=== PATIENT | female | born 1970 | race Two or more races ===

== ENCOUNTER 2019-12-15 13:35 | Outpatient (REF) | payer OTHER, SELFPAY ==
[2019-12-16 11:48] LABS: CT PCR NOT DETECTED (Not Detect.); NG PCR NOT DETECTED (Not Detect.)
[2019-12-20 19:37] LABS: HPV mRNA E6/E7 Not Detected (Not Detected)
== END 2019-12-15 13:36 | disposition home or self-care (01) ==
LOC: HO.LAB 13:35
PROVIDERS: PCP Internal Medicine; Referring Provider Internal Medicine; Visit Provider Advanced Practice Midwife
DX: Z01.419 Encounter for gynecological examination (general) (routine) without abnormal findings (principal); N92.6 Irregular menstruation, unspecified; N95.1 Menopausal and female climacteric states; N85.2 Hypertrophy of uterus; Z87.42 Personal history of other diseases of the female genital tract
CPT/HCPCS: 87491; 87591; 87624; 87625; 88142

== ENCOUNTER 2019-12-24 15:37 | Outpatient (REF) | payer OTHER, SELFPAY ==
--- NOTE | 2019-12-24 15:48 | US_ITS ---
EXAMINATION: US PELVIS COMPLETE CLINICAL INFORMATION: Pelvic and perineal pain. Bilateral salpingectomy. COMPARISON: None TECHNIQUE: Transabdominal and transvaginal ultrasound of the pelvis is performed. FINDINGS: The uterus is anteverted and anteflexed measuring 7.0 cm in length, 3.9 cm in AP and 3.6 cm in transverse dimension. Myometrium is slightly heterogeneous but no focal lesion seen. Endometrial thickness is 0.6 cm. Echogenic calcifications are seen in the cervix. Right ovary measures 2.1 x 1.4 x 1.1 cm and volume 1.7 mL and appears unremarkable. The left ovary is unremarkable. There is no free fluid in cul-de-sac. US/US pelvic complete IMPRESSION: 1. Heterogeneous myometrium but no focal lesion seen. 2. Small calcification in the cervix without any cyst. 3. Right ovary is unremarkable. 4. Left ovary is not visualized.
--- NOTE | 2019-12-24 15:48 | US_ITS ---
EXAMINATION: US PELVIS COMPLETE CLINICAL INFORMATION: Pelvic and perineal pain. Bilateral salpingectomy. COMPARISON: None TECHNIQUE: Transabdominal and transvaginal ultrasound of the pelvis is performed. FINDINGS: The uterus is anteverted and anteflexed measuring 7.0 cm in length, 3.9 cm in AP and 3.6 cm in transverse dimension. Myometrium is slightly heterogeneous but no focal lesion seen. Endometrial thickness is 0.6 cm. Echogenic calcifications are seen in the cervix. Right ovary measures 2.1 x 1.4 x 1.1 cm and volume 1.7 mL and appears unremarkable. The left ovary is unremarkable. There is no free fluid in cul-de-sac. US/US transvaginal IMPRESSION: 1. Heterogeneous myometrium but no focal lesion seen. 2. Small calcification in the cervix without any cyst. 3. Right ovary is unremarkable. 4. Left ovary is not visualized.
== END 2019-12-24 15:38 | disposition home or self-care (01) ==
LOC: HO.US 15:37
PROVIDERS: PCP Internal Medicine; Visit Provider Advanced Practice Midwife
DX: R10.2 Pelvic and perineal pain (principal)
CPT/HCPCS: 76830; 76856

== ENCOUNTER → 2020-01-07 11:27 | Outpatient (BNVA) | payer OTHER, SELFPAY | PROVIDERS: PCP Internal Medicine; Visit Provider Advanced Practice Midwife | DX: Z76.89 Persons encountering health services in other specified circumstances (principal) ==

== ENCOUNTER 2020-02-23 15:15 | Outpatient (REF) | payer OTHER, SELFPAY | END 2020-02-23 15:16 | disposition home or self-care (01) | LOC: HO.LAB 15:15 | PROVIDERS: PCP Internal Medicine; Visit Provider Internal Medicine | DX: Z20.828 Contact with and (suspected) exposure to other viral communicable diseases (principal) | CPT/HCPCS: C9803; U0003 ==

== ENCOUNTER → 2020-06-22 08:46 | Outpatient (BNVA) | payer OTHER, SELFPAY | PROVIDERS: PCP Internal Medicine; Visit Provider Obstetrics & Gynecology | DX: Z32.02 Encounter for pregnancy test, result negative (principal); R87.619 Unspecified abnormal cytological findings in specimens from cervix uteri | CPT/HCPCS: 57452 ==

== ENCOUNTER → 2021-03-19 15:00 | Outpatient (BNVA) | payer OTHER, SELFPAY | PROVIDERS: PCP Internal Medicine; Visit Provider Advanced Practice Midwife ==

== ENCOUNTER 2021-03-23 07:48 | Outpatient (REF) | payer OTHER, SELFPAY ==
[2021-03-23 08:03] LABS: MANUAL DIFF FLAG NO
[2021-03-23 08:21] LABS: Basophils Percent Auto 0.6 % (0-2); Eosinophils Absolute Auto 0.2 X10*3/uL (0.0-0.4); Eosinophils Percent Auto 2.1 % (0-4); Hematocrit 38.9 % (37.0-47.0); Hemoglobin 12.2 g/dl (12.0-16.0); Imm Gran Abs Auto 0.01 X10*3/uL (0.00-0.03); Imm Gran Pct Auto 0.1 % (0.0-0.4); Lymphocytes Absolute Auto 2.7 X10*3/uL (1.2-4.9); Lymphocytes Percent Auto 38.5 % (20-40); Mean Corpuscular HGB Conc 31.4 g/dl (31.0-35.0); Mean Corpuscular Hemoglobin 27.6 pg (27.0-33.0); Mean Platelet Volume 10.2 fL (9.4-12.3); Monocytes Absolute Auto 0.6 X10*3/uL (0.1-1.2); Monocytes Percent Auto 8.9 % (2-11); Neutrophils Absolute Auto 3.5 x10*3/uL (2.0-8.3); Neutrophils Percent Auto 49.8 % (45-73); Platelet Count 256 X10*3/uL (160-400); Red Blood Count 4.42 X10*6/uL (4.20-5.50); Red Cell Distribution Width 12.2 % (11.0-16.0); White Blood Count 7.1 X10*3/uL (4.8-10.8)
[2021-03-23 08:52] LABS: Alanine Aminotransferase 9 U/L (0-31); Albumin Level 4.3 g/dL (3.5-5.0); Alkaline Phosphatase 80 U/L (39-117); Anion Gap 10 (12-20); Aspartate Amino Transferase 13 U/L (5-31); Bilirubin Total 1.1 mg/dL (0.0-1.0); Blood Urea Nitrogen 11 mg/dL (9-16); Calcium 9.9 mg/dL (8.4-10.2); Carbon Dioxide 31 mmol/L (22-29); Chloride 104 mmol/L (96-108); Cholesterol 203 mg/dL; Estimated Glomerular Filt Rate > 60; Glucose Fasting 100 mg/dL (60-99); HDL Cholesterol 49 mg/dL; LDL Cholesterol Calculated 135 mg/dl; Potassium 4.5 mmol/L (3.3-5.1); Sodium 140 mmol/L (135-145); Total Protein 7.5 g/dL (6.5-8.0); Triglycerides 96 mg/dL
[2021-03-23 09:14] LABS: Thyroid Stimulating Hormone 5.06 uIU/mL (0.32-4.0)
== END 2021-03-23 07:49 | disposition home or self-care (01) ==
LOC: HO.LAB 07:48
PROVIDERS: PCP Internal Medicine; Visit Provider Internal Medicine
DX: Z00.00 Encounter for general adult medical examination without abnormal findings (principal); Z13.0 Encounter for screening for diseases of the blood and blood-forming organs and certain disorders involving the immune mechanism
CPT/HCPCS: 36415; 80053; 80061; 84443; 85025

== ENCOUNTER 2021-03-30 17:04 | Outpatient (REF) | payer OTHER, SELFPAY ==
[2021-03-30 18:26] LABS: Thyroid Stimulating Hormone 3.95 uIU/mL (0.32-4.0)
== END 2021-03-30 17:05 | disposition home or self-care (01) ==
LOC: HO.LAB 17:04
PROVIDERS: PCP Internal Medicine; Visit Provider Internal Medicine
DX: Z00.00 Encounter for general adult medical examination without abnormal findings (principal); Z13.29 Encounter for screening for other suspected endocrine disorder
CPT/HCPCS: 36415; 84443

== ENCOUNTER 2021-04-06 12:01 | Outpatient (REF) | payer OTHER, SELFPAY ==
[2021-04-06 13:40] LABS: Thyroid Stimulating Hormone 3.41 uIU/mL (0.32-4.0)
== END 2021-04-06 12:02 | disposition home or self-care (01) ==
LOC: HO.LAB 12:01
PROVIDERS: PCP Internal Medicine; Visit Provider Internal Medicine
DX: Z00.00 Encounter for general adult medical examination without abnormal findings (principal)
CPT/HCPCS: 36415; 84443

== ENCOUNTER 2021-06-07 16:24 | Outpatient (REF) | payer OTHER, SELFPAY ==
--- NOTE | ~2021-06-07 | MM_ITS ---
EXAMINATION: MM SCREENING DIGITAL BREAST TOMOSYNTHESIS, BILATERAL CLINICAL INFORMATION: Screening. Asymptomatic. The lifetime risk of breast cancer based on the Tyrer-Cuzick Model is 7%. COMPARISON: Mammography: 10/26/2019, 03/13/2016 TECHNIQUE: Digital breast tomosynthesis is performed in both the craniocaudal and mediolateral oblique views along with computer-aided detection (CAD). Synthesized 2D images are generated from the tomosynthesis. FINDINGS: There are scattered areas of fibroglandular density (ACR BI-RADS breast composition Category b). There are no significant masses, abnormal calcifications, or other abnormalities. Parenchymal pattern is similar to prior studies. There is no developing density or architectural abnormality. The axilla and skin contours are unremarkable. No significant changes. MM/MM tomosynthesis screening BI IMPRESSION: No mammographic evidence of malignancy. ASSESSMENT: BI-RADS 1: Negative RECOMMENDATION: Routine annual mammography screening. This patient's information was entered into a reminder system with a target due date for their next mammogram.
== END 2021-06-07 16:25 | disposition home or self-care (01) ==
LOC: HO.MAMMO 16:24
PROVIDERS: Visit Provider Advanced Practice Midwife
DX: Z12.31 Encounter for screening mammogram for malignant neoplasm of breast (principal)
CPT/HCPCS: 77063; 77067

== ENCOUNTER 2021-10-26 07:27 | Day surgery (SDC) | payer OTHER, SELFPAY ==
[2021-10-22 15:05] VITALS: BMI 29.1
--- NOTE | 2021-10-25 11:48 | P.CONAN_ITS ---
Documented by User: Cori Vidales NP 10/25/21 11:48 HPI - Anesthesia Eval Consult details Narrative: 51yo F for Colonoscopy PMFSH Active Problems Active Problems: All Active Problems (Updated 01/31/21 @ 13:37 by Nasim Gonzales MD) Physical exam (Acute) Abnormal Pap smear of cervix (Acute) Enlarged uterus (Acute) Hx of ovarian cyst (Acute) Perimenopausal symptoms (Acute) Past Medical History Medical History Abnormal Pap smear of cervix History of in vitro fertilization Hx of attention deficit disorder Hx of ectopic Family History Family History Mother Rectal cancer Thyroid disease History of fibromyalgia Father Pancreatic cancer Liver cancer Diabetes mellitus Paternal Grandfather Aneurysm Daughter History of open heart surgery Surgical History Surgical History History of breast lift Hx of tubal ligation Social History Social History (Updated 10/22/21 @ 15:05 by Willow Thompson RN) Housing: House Alcohol intake: never Patient Tobacco Use Status: Former Tobacco user Quit Date: >10 years ago Tobacco use type: Cigarette e-Cigarette/Vaping Use: Never Used Second Hand Smoke Exposure: No Are you DNR?: No Advance Directives: No Advance Directives Information Provided: Yes Nutrition Risks: No Nutritional Risk FDLMP: 18 months ago Current occupational status: employed Sexual orientation: Straight/Heterosexual Gender identity: Female Cognitive needs: No Hearing needs: No Vision needs: No Meds Allergies Allergy/AdvReac Type Severity Reaction Status Date / Time codeine [Codeine] Allergy Mild HIVES Verified 10/26/21 07:54 morphine [MORPHINE] Allergy Unknown RASH, HIVES Verified 10/26/21 07:54 Home Medications Medication Instructions Recorded Confirmed Last Taken Type No Known Home Meds 01/07/20 10/22/21 Unknown History Exam Exam Date and Time: October 25, 2021 1148 Height,Weight and Vital Signs: Height 5 ft 5 in Weight 79.379 kg Assessment and Plan Assessment Anesthesia Assessment: Chart Reviewed Documented by User: Zachery Rai MD 11/04/21 21:19 [facility] Past Medical History Medical History Abnormal Pap smear of cervix History of in vitro fertilization Hx of attention deficit disorder Hx of ectopic Functional capacity: independent ambulation Family History Family History Mother Rectal cancer Thyroid disease History of fibromyalgia Father Pancreatic cancer Liver cancer Diabetes mellitus Paternal Grandfather Aneurysm Daughter History of open heart surgery Family history of problems with anesthesia: No Surgical History Surgical History History of breast lift Hx of tubal ligation History of Problems with Anesthesia: Yes (PONV) Social History Social History (Updated 10/22/21 @ 15:05 by Willow Thompson RN) Housing: House Alcohol intake: never Patient Tobacco Use Status: Former Tobacco user Quit Date: >10 years ago Tobacco use type: Cigarette e-Cigarette/Vaping Use: Never Used Second Hand Smoke Exposure: No Are you DNR?: No Advance Directives: No Advance Directives Information Provided: Yes Nutrition Risks: No Nutritional Risk FDLMP: 18 months ago Current occupational status: employed Sexual orientation: Straight/Heterosexual Gender identity: Female Cognitive needs: No Hearing needs: No Vision needs: No Meds Allergies Allergy/AdvReac Type Severity Reaction Status Date / Time codeine [Codeine] Allergy Mild HIVES Verified 10/26/21 07:54 morphine [MORPHINE] Allergy Unknown RASH, HIVES Verified 10/26/21 07:54 Home Medications Medication Instructions Recorded Confirmed Last Taken Type No Known Home Meds 01/07/20 10/22/21 Unknown History Exam Airway Mallampati Class: III TM Dist: >3cm Neck ROM: Full Loose/Missing/Broken Teeth: Yes (Fillings ) Heart: S1,S2 Lungs: b/l breath sounds Assessment and Plan Assessment Anesthesia Assessment: Anesthesia Plan Discussed Final Anesthetic Review Family History of Problems with Anesthesia: No History of Problems with Anesthesia: Yes (PONV) NPO: Yes ASA Class: II Final Preanesthetic Review: Meds/Allgs Chart Reviewed, Consent Obtained/Reviewed and Anes Risks/Benef Reviewed Patient Risk: Intermediate Procedure Risk: Intermediate Anesthetic Plan Anesthetic Plan: MAC: Disposition: Standard PACU
[2021-10-26] MEDS: Lactated Ringers 1,000 ML 100 ML IVCONT (07:52)
[2021-10-26 07:53] VITALS: BP 127/78; PULSE 71; RESP 18; TEMP 36.4; O2SAT 99
--- NOTE | 2021-10-26 08:55 | MHC.SHP ---
Pre-Procedural Eval Section A Date of Service: 10/26/21 Section B Chief Complaint: screening Details of Present Illness: see H&P no changes Relevant Family History (Specify if Yes): No Relevant Social History: None Present Medications: None Medical History: No relevant PMH Allergies: Allergies Allergy/AdvReac Type Severity Reaction Status Date / Time codeine [Codeine] Allergy Mild HIVES Verified 10/26/21 07:54 morphine [MORPHINE] Allergy Unknown RASH, HIVES Verified 10/26/21 07:54 Review of Systems Sugical H&P ROS: Negative: Constitution, Cardiovascular, Respiratory, Neurological, Psychiatric, Hem-Onc, Allergic/Immunologic, Gastrointestinal, Genitourinary, Musculoskeletal, Integumentary, Endocrine and Eyes/Ears/Nose/Throat Exam Surgical H&P Exam: Normal: HEENT, Normal: Heart, Normal: Lungs, Normal: Extremities, Normal: Abdomen, Normal: Skin and Normal: Neurological Plan Diagnosis/Plan: Unchanged I have reviewed the history and physical and performed a pertinent physical examination on my patient. No changes have occurred unless specified.
--- NOTE | 2021-10-26 09:25 | PM.OP ---
Brief Operative Note Date of Service: 10/26/21 Pre-op diagnosis: screening Post-op diagnosis: same Surgeon: Mandeep Zuniga Anesthesia: MAC Was an Clerical Administrative Assistant used for this Procedure?: No Estimated blood loss (mL): 0 Pathology: other Condition: stable Disposition: PACU
[2021-10-26 09:31] VITALS: BP 90/55; PULSE 67; RESP 15; TEMP 36.6; O2SAT 99
[2021-10-26 09:45] VITALS: BP 101/64; PULSE 82; RESP 16; O2SAT 100
[2021-10-26 10:00] VITALS: BP 116/72; PULSE 62; RESP 18; TEMP 36.6; O2SAT 100
--- NOTE | 2021-10-26 21:29 | OP_ITS ---
SURGEON: Mandeep Zuniga MD INDICATIONS: Colon cancer screening. PREOPERATIVE DIAGNOSIS: POSTOPERATIVE DIAGNOSIS: PROCEDURE PERFORMED: Colonoscopy to the terminal ileum with snare polypectomy. 10/26/21 ESTIMATED BLOOD LOSS: COMPLICATIONS: ANESTHESIA: ASSISTANTS: SPECIMENS: MEDICATIONS: Monitored anesthesia care. DESCRIPTION OF PROCEDURE: A history and physical performed. The risks and benefits of the procedure were explained to the patient. Informed consent was obtained. The patient was placed in the left lateral decubitus position. A digital rectal exam was performed and was found to be normal. The Olympus pediatric video colonoscope was introduced into the rectum and advanced to the cecum without difficulty. The cecum was identified by transillumination, palpation, and identification of ileocecal valve. Examination was performed. The scope was removed. She tolerated the procedure well, returned to recovery area in stable condition. FINDINGS: The terminal ileum was normal. The visualized colonic mucosa was within normal limits without evidence of masses, ulcers, or polyps. In the hepatic flexure, was an 8 to 9 mm polyp, which was removed with a hot snare and recovered via suction. No other polyps were identified. The quality of prep was good. Retroflexed examination showed some small internal hemorrhoids. IMPRESSION: Colon polyp. RECOMMENDATION: Follow up the biopsy results. MD BRITTANY Mccracken/HIPOLITOL / [id number] MTDD
== END 2021-10-26 11:08 | disposition home or self-care (01) ==
PROVIDERS: PCP Internal Medicine; Visit Provider Internal Medicine Gastroenterology
PROC: 0DJD8ZZ Inspection of Lower Intestinal Tract, Via Natural or Artificial Opening Endoscopic (ICD-10-PCS; CPT 45378; principal; 2021-10-26 08:50)
DX: Z12.11 Encounter for screening for malignant neoplasm of colon (principal); D12.3 Benign neoplasm of transverse colon; K64.8 Other hemorrhoids; Z80.0 Family history of malignant neoplasm of digestive organs; Z90.79 Acquired absence of other genital organ(s); Z87.891 Personal history of nicotine dependence; Z88.8 Allergy status to other drugs, medicaments and biological substances
CPT/HCPCS: 45385; 88305

== ENCOUNTER 2022-03-12 08:59 | Outpatient (REF) | payer OTHER, SELFPAY ==
--- NOTE | ~2022-03-12 | MM_ITS ---
EXAMINATION: BONE DENSITOMETRY CLINICAL INDICATION: Other specified disorders of bone density and structure, unspecified site. COMPARISON: None (current study represents initial baseline exam). TECHNIQUE: Using a [employer] DXA System (software version: 13.1) manufactured by [employer], dual-energy x-ray absorptiometry was performed of the lumbar spine and left hip. The images are of good technical quality. Summary results are attached. FINDINGS: AP SPINE L1-L4: BMD 1.109 g/cm2, Z-score -0.6, T-score -0.6, normal. LEFT FEMUR, NECK: BMD 0.946 g/cm2, Z-score -0.1, T-score -0.7, normal. LEFT FEMUR, TOTAL: BMD 0.988 g/cm2, Z-score 0.0, T-score -0.2, normal. IDENTIFIED RISK FACTORS: Menopause. HISTORY OF FRACTURE: None listed. MEDICATIONS: None listed. MM/XR DEXA axial skeleton IMPRESSION: 1. DIAGNOSIS: Normal bone density based on the lowest T-score value of -0.7 in the femoral neck applying World Health Organization criteria. 2. 10-YEAR FRACTURE RISK PREDICTION, FRAX: According to the guidelines, FRAX calculation should only be performed on patients in the osteopenia bone density category.?Therefore, FRAX was not performed on this patient.? 3. Treatment Recommendations: NOF guidelines recommend consideration for treatment in postmenopausal women and men age 50 and older presenting with the following: -A hip or vertebral (clinical or morphometric) fracture. -T-score less than or equal to -2.5 at the femoral neck or spine after appropriate evaluation to exclude secondary causes. -Low bone mass at the hip or spine and a 10-year fracture probability by FRAX of greater than or equal to 3% for hip fracture or greater than or equal to 20% for major osteoporotic fracture based on the [place] adapted WHO algorithm. 4. Other Recommendations: All treatment decisions require clinical judgment and consideration of individual patient factors, including patient preferences, comorbidities, previous drug use, risk factors not captured in the FRAX model (e.g. frailty, falls, vitamin D deficiency, increased bone turnover, interval significant decline in bone density) and possible under or overestimation of fracture risk by FRAX. FUTURE SCAN RECOMMENDATION: People with diagnosed cases of osteoporosis or at high risk for fracture should have regular bone mineral density tests. For patients eligible for Medicare, routine testing is allowed once every 2 years. The testing frequency can be increased to one year for patients who have rapidly progressing disease, those who are receiving or discontinuing medical therapy to restore bone mass, or have additional risk factors.
== END 2022-03-12 09:00 | disposition home or self-care (01) ==
LOC: HO.MAMMO 08:59
PROVIDERS: PCP Internal Medicine; Visit Provider Internal Medicine
DX: Z13.820 Encounter for screening for osteoporosis (principal); M85.80 Other specified disorders of bone density and structure, unspecified site; Z78.0 Asymptomatic menopausal state
CPT/HCPCS: 77080

== ENCOUNTER 2022-03-12 09:21 | Outpatient (REF) | payer OTHER, SELFPAY ==
[2022-03-12 09:32] LABS: MANUAL DIFF FLAG NO
[2022-03-12 09:40] LABS: Basophils Absolute Auto 0.1 X10*3/uL (0.0-0.2); Basophils Percent Auto 0.7 % (0-2); Eosinophils Absolute Auto 0.1 X10*3/uL (0.0-0.4); Eosinophils Percent Auto 1.5 % (0-4); Hematocrit 39.5 % (37.0-47.0); Hemoglobin 12.8 g/dl (12.0-16.0); Imm Gran Abs Auto 0.02 X10*3/uL (0.00-0.03); Imm Gran Pct Auto 0.3 % (0.0-0.4); Lymphocytes Absolute Auto 2.5 X10*3/uL (1.2-4.9); Lymphocytes Percent Auto 33.2 % (20-40); Mean Corpuscular HGB Conc 32.4 g/dl (31.0-35.0); Mean Corpuscular Hemoglobin 28.4 pg (27.0-33.0); Mean Corpuscular Volume 87.8 fL (80.0-98.0); Mean Platelet Volume 10.1 fL (9.4-12.3); Monocytes Absolute Auto 0.6 X10*3/uL (0.1-1.2); Monocytes Percent Auto 7.3 % (2-11); Neutrophils Absolute Auto 4.3 x10*3/uL (2.0-8.3); Platelet Count 284 X10*3/uL (160-400); Red Cell Distribution Width 12.2 % (11.0-16.0); White Blood Count 7.5 X10*3/uL (4.8-10.8)
[2022-03-12 10:50] LABS: Alanine Aminotransferase 10 U/L (0-31); Albumin Level 4.4 g/dL (3.5-5.0); Alkaline Phosphatase 87 U/L (39-117); Anion Gap 11 (12-20); Aspartate Amino Transferase 14 U/L (5-31); Bilirubin Total 1.2 mg/dL (0.0-1.0); Blood Urea Nitrogen 12 mg/dL (9-16); Calcium 9.3 mg/dL (8.4-10.2); Carbon Dioxide 30 mmol/L (22-29); Chloride 104 mmol/L (96-108); Cholesterol 210 mg/dL; Estimated Glomerular Filt Rate > 60; Glucose Fasting 96 mg/dL (60-99); HDL Cholesterol 53 mg/dL; LDL Cholesterol Calculated 140 mg/dl; Potassium 4.4 mmol/L (3.3-5.1); Sodium 141 mmol/L (135-145); Total Protein 7.3 g/dL (6.5-8.0); Triglycerides 89 mg/dL
[2022-03-12 11:08] LABS: Thyroid Stimulating Hormone 3.71 uIU/mL (0.32-4.0); Vitamin D 25-OH Total 18.3 ng/mL (>30)
== END 2022-03-12 09:22 | disposition home or self-care (01) ==
LOC: HO.LAB 09:21
PROVIDERS: PCP Internal Medicine; Visit Provider Internal Medicine
DX: Z13.9 Encounter for screening, unspecified (principal); D64.9 Anemia, unspecified; E03.9 Hypothyroidism, unspecified; N28.9 Disorder of kidney and ureter, unspecified; E78.5 Hyperlipidemia, unspecified
CPT/HCPCS: 36415; 80053; 80061; 82306; 84443; 85025

== ENCOUNTER 2022-03-21 15:18 | Outpatient (REF) | payer OTHER, SELFPAY ==
[2022-03-25 20:23] LABS: HPV mRNA E6/E7 rflx Not Detected (Not Detected)
== END 2022-03-21 15:19 | disposition home or self-care (01) ==
LOC: HO.LNP 15:18
PROVIDERS: PCP Internal Medicine; Visit Provider Advanced Practice Midwife
DX: Z01.419 Encounter for gynecological examination (general) (routine) without abnormal findings (principal); R87.619 Unspecified abnormal cytological findings in specimens from cervix uteri; N95.1 Menopausal and female climacteric states; N89.8 Other specified noninflammatory disorders of vagina; R68.82 Decreased libido
CPT/HCPCS: 88142

== ENCOUNTER 2022-05-03 06:31 | Day surgery (SDC) | payer OTHER, SELFPAY ==
--- NOTE | 2022-05-02 10:07 | HO.ANESPROP2 ---
Documented by User: Cori Vidales NP 05/02/22 10:13 HPI - Anesthesia Eval Consult details Narrative: 51yo F for Colonoscopy PMFSH Active Problems Active Problems: All Active Problems (Updated 01/31/21 @ 13:37 by Nasim Gonzales MD) Physical exam (Acute) Abnormal Pap smear of cervix (Acute) Enlarged uterus (Acute) Hx of ovarian cyst (Acute) Perimenopausal symptoms (Acute) Past Medical History Medical History Abnormal Pap smear of cervix History of in vitro fertilization Hx of attention deficit disorder Hx of ectopic Family History Family History Mother Rectal cancer Thyroid disease History of fibromyalgia Father Pancreatic cancer Liver cancer Diabetes mellitus Paternal Grandfather Aneurysm Daughter History of open heart surgery Family history of problems with anesthesia: No Surgical History Surgical History History of breast lift Hx of tubal ligation History of Problems with Anesthesia: Yes (PONV) Social History Social History Housing: House Alcohol intake: never Patient Tobacco Use Status: Former Tobacco user Quit Date: >10 years ago Tobacco use type: Cigarette e-Cigarette/Vaping Use: Never Used Second Hand Smoke Exposure: No Are you DNR?: No Advance Directives: No Advance Directives Information Provided: Yes Nutrition Risks: No Nutritional Risk service: No Current occupational status: employed Sexual orientation: Straight/Heterosexual Gender identity: Female Cognitive needs: No Hearing needs: No Vision needs: No Meds Allergies Allergy/AdvReac Type Severity Reaction Status Date / Time codeine [Codeine] Allergy Mild HIVES Verified 03/21/22 15:22 morphine [MORPHINE] Allergy Unknown RASH, HIVES Verified 03/21/22 15:22 Home Medications Medication Instructions Recorded Confirmed Last Taken Type No Known Home Meds 01/07/20 10/22/21 Unknown History Exam Exam Date and Time: May 02, 2022 1007 Pertinent Lab Results Pertinent Lab Results: Laboratory Tests 03/12/22 03/12/22 09:32 09:32 WBC 7.5 Hgb 12.8 Hct 39.5 Plt Count 284 Sodium 141 Potassium 4.4 Chloride 104 Carbon Dioxide 30 H BUN 12 Creatinine 0.83 Assessment and Plan Assessment Anesthesia Assessment: Chart Reviewed Final Anesthetic Review Family History of Problems with Anesthesia: No History of Problems with Anesthesia: Yes (PONV) Documented by User: Libby Locke MD 05/03/22 07:28 [facility] Past Medical History Medical History Abnormal Pap smear of cervix History of in vitro fertilization Hx of attention deficit disorder Hx of ectopic Family History Family History Mother Rectal cancer Thyroid disease History of fibromyalgia Father Pancreatic cancer Liver cancer Diabetes mellitus Paternal Grandfather Aneurysm Daughter History of open heart surgery Surgical History Surgical History History of breast lift Hx of tubal ligation Social History Social History Housing: House Alcohol intake: never Patient Tobacco Use Status: Former Tobacco user Quit Date: >10 years ago Tobacco use type: Cigarette e-Cigarette/Vaping Use: Never Used Second Hand Smoke Exposure: No Are you DNR?: No Advance Directives: No Advance Directives Information Provided: Yes Nutrition Risks: No Nutritional Risk service: No Current occupational status: employed Sexual orientation: Straight/Heterosexual Gender identity: Female Cognitive needs: No Hearing needs: No Vision needs: No Meds Allergies Allergy/AdvReac Type Severity Reaction Status Date / Time codeine [Codeine] Allergy Mild HIVES Verified 03/21/22 15:22 morphine [MORPHINE] Allergy Unknown RASH, HIVES Verified 03/21/22 15:22 Home Medications Medication Instructions Recorded Confirmed Last Taken Type No Known Home Meds 01/07/20 10/22/21 Unknown History Exam Airway Mallampati Class: II TM Dist: >3cm Neck ROM: Full Loose/Missing/Broken Teeth: No Heart: RRR Lungs: CTA Assessment and Plan Assessment Anesthesia Assessment: Anesthesia Plan Discussed Final Anesthetic Review NPO: Yes ASA Class: II Final Preanesthetic Review: Meds/Allgs Chart Reviewed, Consent Obtained/Reviewed and Anes Risks/Benef Reviewed Patient Risk: Low Procedure Risk: Low Anesthetic Plan Anesthetic Plan: MAC: Disposition: Standard PACU
[2022-05-03 05:51] VITALS: BMI 29.1
[2022-05-03] MEDS: Lactated Ringers 1,000 ML 100 ML IVCONT (07:09)
[2022-05-03 07:10] VITALS: BP 132/80; PULSE 81; RESP 18; TEMP 36.7; O2SAT 98
[2022-05-03] MEDS: Sodium Phosphate,Mono-Dibasic 133 ML ENEMA PR ×2 (07:20)
--- NOTE | 2022-05-03 07:26 | MHC.SHP ---
Pre-Procedural Eval Section A Date of Service: 05/03/22 Section B Chief Complaint: hx of polyp Details of Present Illness: see h&p and addendum, no other changes Relevant Family History (Specify if Yes): No Relevant Social History: None Present Medications: None Medical History: No relevant PMH History of Previous Operations: No relevant previous surgery Allergies: Allergies Allergy/AdvReac Type Severity Reaction Status Date / Time codeine [Codeine] Allergy Mild HIVES Verified 03/21/22 15:22 morphine [MORPHINE] Allergy Unknown RASH, HIVES Verified 03/21/22 15:22 Review of Systems Sugical H&P ROS: Negative: Constitution, Cardiovascular, Respiratory, Neurological, Psychiatric, Hem-Onc, Allergic/Immunologic, Gastrointestinal, Genitourinary, Musculoskeletal, Integumentary, Endocrine and Eyes/Ears/Nose/Throat Exam Surgical H&P Exam: Normal: HEENT, Normal: Heart, Normal: Lungs, Normal: Extremities, Normal: Abdomen, Normal: Skin and Normal: Neurological Plan Diagnosis/Plan: Unchanged I have reviewed the history and physical and performed a pertinent physical examination on my patient. No changes have occurred unless specified. Time Spent With Patient Time: Total time managing care of this patient today ____ minutes.
[2022-05-03 08:08] VITALS: BP 111/69; PULSE 76; RESP 20; TEMP 36.1; O2SAT 99
--- NOTE | 2022-05-03 08:13 | P.BOP_ITS ---
Brief Operative Note Date of Service: 05/03/22 Pre-op diagnosis: colon polyp with dysplasia Post-op diagnosis: same Procedure: colonoscopy Surgeon: Mandeep Zuniga Anesthesia: MAC Was an Microfilm Camera Operator used for this Procedure?: No Estimated blood loss (mL): 5 Pathology: other Condition: stable Disposition: PACU
[2022-05-03 08:23] VITALS: BP 114/65; PULSE 69; RESP 16; TEMP 36.1; O2SAT 99
[2022-05-03 08:38] VITALS: BP 115/72; PULSE 65; RESP 16; TEMP 36.3; O2SAT 99
--- NOTE | 2022-05-03 09:16 | OP_ITS ---
SURGEON: Mandeep Zuniga MD INDICATIONS: Polyp with adenomatous dysplasia, question of incomplete resection per pathology report PREOPERATIVE DIAGNOSIS: POSTOPERATIVE DIAGNOSIS: PROCEDURE PERFORMED: Colonoscopy to the terminal ileum with snare polypectomy. ESTIMATED BLOOD LOSS: COMPLICATIONS: ANESTHESIA: Monitored anesthesia care. ASSISTANTS: SPECIMENS: DESCRIPTION OF PROCEDURE: The procedure was performed on 05/03/2022. The history and physical was performed. The risks and benefits of the procedure were explained to the patient. Informed consent was obtained. The patient was placed in the left lateral decubitus position. A digital rectal exam was performed and was found to be normal. The Olympus pediatric video colonoscope was introduced into the rectum and advanced to the cecum without difficulty. The cecum was identified by transillumination, palpation, and identification of ileocecal valve. Examination was performed. The scope was removed. She tolerated the procedure well and was taken to the recovery area in stable condition. FINDINGS: The terminal ileum was examined and appeared normal. The visualized colonic mucosa was normal. There was some liquid stool and small pieces of stool limiting the sensitivity examination for detection of small polyps. This was washed and suctioned. The area in hepatic flexure was carefully examined. There was a single 6 mm polyp, which was removed with a cold snare. This did not appear to be consistent with the previous polypectomy area. No other residual polypoid tissue was identified. The site of the previous polypectomy was not clearly identified. No other polyps were seen. There was mild sigmoid diverticulosis. Retroflexed examination showed some small internal hemorrhoids. IMPRESSION: Colon polyp. RECOMMENDATION: Follow up the biopsy results. MD BRITTANY Mccracken/INDER / [id number]
== END 2022-05-03 09:17 | disposition home or self-care (01) ==
PROVIDERS: PCP Internal Medicine; Visit Provider Internal Medicine Gastroenterology
PROC: 0DJD8ZZ Inspection of Lower Intestinal Tract, Via Natural or Artificial Opening Endoscopic (ICD-10-PCS; CPT 45378; principal; 2022-05-03 07:30)
DX: Z12.11 Encounter for screening for malignant neoplasm of colon (principal); Z86.010 Personal history of colon polyps; K63.5 Polyp of colon; K57.30 Diverticulosis of large intestine without perforation or abscess without bleeding; K64.8 Other hemorrhoids; Z98.51 Tubal ligation status; Z88.8 Allergy status to other drugs, medicaments and biological substances; Z87.891 Personal history of nicotine dependence
CPT/HCPCS: 45385; 88305

== ENCOUNTER 2022-06-12 16:00 | Outpatient (REF) | payer OTHER, SELFPAY ==
--- NOTE | ~2022-06-12 | MM_ITS ---
EXAMINATION: MM SCREENING DIGITAL BREAST TOMOSYNTHESIS, BILATERAL CLINICAL INFORMATION: Screening. Asymptomatic. The lifetime risk of breast cancer based on the Tyrer-Cuzick Model is 6.9%. COMPARISON: Mammography: June 07, 2021 and studies dating back to March 18, 2003 TECHNIQUE: Digital breast tomosynthesis is performed in both the craniocaudal and mediolateral oblique views along with computer-aided detection (CAD). Synthesized 2D images are generated from the tomosynthesis. FINDINGS: The breasts are heterogeneously dense, which may obscure small masses (ACR BI-RADS breast composition Category c). There are no significant masses, abnormal calcifications, or other abnormalities. MM/MM tomosynthesis screening BI IMPRESSION: No significant changes from prior exam. ASSESSMENT: BI-RADS 1: Negative RECOMMENDATION: Routine annual mammography screening. This patient's information was entered into a reminder system with a target due date for their next mammogram.
== END 2022-06-12 16:01 | disposition home or self-care (01) ==
LOC: HO.MAMMO 16:00
PROVIDERS: PCP Internal Medicine; Visit Provider Advanced Practice Midwife
DX: Z12.31 Encounter for screening mammogram for malignant neoplasm of breast (principal)
CPT/HCPCS: 77063; 77067

== ENCOUNTER 2023-02-25 10:02 | Outpatient (AMB) | payer OTHER, SELFPAY ==
[2023-02-25 10:05] VITALS: BP 118/78; PULSE 70; O2SAT 97; BMI 29.6
--- NOTE | 2023-02-25 10:05 | A.OFFPC_ITS ---
Vital Signs 02/25/23 10:05 Height 5 ft 5 in Weight 178 lb BMI 29.6 BP 118/78 Blood Pressure Location Lt brachial Position Sitting Pulse 70 Pulse Source Pulse Oximeter Pulse Oximetry (%) 97 Oxygen Delivery Method Room Air Intake Visit Reasons: Annual Exam+ NEEDS PHQ9/THRIVE Mold Washer Required: No Director Of Social Work: Not Required per policy Accompanied by: Self / Same As Patient Allergies codeine [Codeine] Allergy (Mild, Verified 02/25/23 10:05) HIVES morphine [MORPHINE] Allergy (Unknown, Verified 02/25/23 10:05) RASH, HIVES Medication List - Last Reconciled 02/25/23 by Nasim Gonzales MD valacyclovir (Valtrex) 1,000 mg PO BID Tobacco use date assessed: 02/25/23 Dental Screening Dental Screen Date: 02/25/23 Did you have a dental visit in the last 12 months?: Yes Did you have a dental problem in the last 6 months where you did not have access to dental care?: No Was dental information given to patient?: Patient has dentist HPI Annual Exam+ NEEDS PHQ9/THRIVE HPI Details healthy; has mammograms and colonoscopy PFSH Medical History Abnormal Pap smear of cervix Hx of ectopic History of in vitro fertilization Hx of attention deficit disorder Surgical History History of breast lift Hx of tubal ligation Family History Mother Rectal cancer Thyroid disease History of fibromyalgia Father Pancreatic cancer Liver cancer Diabetes mellitus Paternal Grandfather Aneurysm Daughter History of open heart surgery Social History Housing: House Alcohol intake: never Patient Tobacco Use Status: Former Tobacco user Quit Date: >10 years ago Tobacco use type: Cigarette e-Cigarette/Vaping Use: Never Used Second Hand Smoke Exposure: No service: No Current occupational status: employed Sexual orientation: Straight/Heterosexual Gender identity: Female Cognitive needs: No Hearing needs: No Vision needs: No Female Reproductive History Menstrual Age of Menarche: 13 Questionnaire PHQ-9 Over the last 2 weeks, how often have you been bothered by any of the following problems? 1. Little interest or pleasure in doing things: not at all 2. Feeling down, depressed, or hopeless: not at all 3. Trouble falling or staying asleep, or sleeping too much: not at all 4. Feeling tired or having little energy: not at all 5. Poor appetite or overeating: not at all 6. Feeling bad about yourself - or that you are a failure or have let yourself or your family down: not at all 7. Trouble concentrating on things, such as reading the newspaper or watching television: not at all 8. Moving or speaking so slowly that other people could have noticed. Or the opposite - being so fidgety or restless that you have been moving around a lot more than usual: not at all 9. Thoughts that you would be better off or of hurting yourself in some way: not at all Total score: 0 Depression Screening Interpretation: Negative Depression Screening Done: Yes 94072 - PHQ-9 Billing: Yes Source: Developed by Drs. Victoriano Ponce, Yvette Mccoy, Bob Bird and colleagues, with an educational yaritza from [employer]. Thrive Questionnaire Date Thrive assessed: 02/25/23 I am a: Patient What is your living situation today?: I have a steady place to live Within the past 12 months, did the food you bought not last and you didn't have the money to get more?: Never true Within the past 12 months, did you worry whether your food would run out before you got money to buy more?: Never true Do you have trouble paying for medicines?: No Do you have trouble getting transportation to medical appointments?: No Do you have trouble paying your heating and electricity bill?: No Do you have trouble taking care of your child, family member or friend?: No Do you have trouble with day-to-day activities such as bathing, preparing meals, shopping, managing finances, etc.?: No Are you currently unemployed and looking for a job?: No Are you interested in more education?: No Please select the resources that you would like help with: None AUDIT C Alcohol Use Questionnaire (AUDIT-C) 1. How often do you have a drink containing alcohol?: Never Total Score: 0 Score Reviewed/Action Taken: Yes SUJEY-7 AMB Questionnaire SUJEY-7 Date SUJEY - 7 assessed: 02/25/23 Feeling nervous, anxious, or on edge: 1 = Several days Not being able to stop or control worryin = Not at all Worrying too much about different things: 0 = Not at all Trouble relaxin = Not at all Being so restless that it is hard to sit still: 1 = Several days Becoming easily annoyed or irritable: 0 = Not at all Feeling afraid as if something awful might happen: 0 = Not at all Total SUJEY-7 score (0-4 normal; 5-9 mild; 10-14 moderate; 15-21 severe): 2 Source: Developed by Drs. Victoriano Ponce, Yvette Mccoy, Bob Bird and colleagues, with an educational yaritza from [employer]. SUJEY-7 Assessment Billing SUJEY-7 Assessment Tool: SUJEY-7 Assessment 20005 Review of Systems Const Denies chills, Denies fatigue, Denies headache(s) and Denies weight loss Eyes Denies change in vision, Denies diplopia and Denies eye pain ENT Denies vertigo, Denies dizziness, Denies headache(s) and Denies nasal discharge Card Denies chest pain, Denies rapid heart rate and Denies dyspnea on exertion Resp Denies chest congestion, Denies cough, Denies pain with cough and Denies dyspnea on exertion GI Denies abdominal pain, Denies hematochezia and Denies change in bowel habits Musc Denies myalgias, Denies arthralgias and Denies joint swelling Skin/Breast Denies lesions and Denies unusual bruising Neuro Denies vertigo, Denies dizziness, Denies headache(s) and Denies focal weakness Endo Denies fatigue Physical exam (Primary Care) Vital Signs: Last Vital Signs Pulse 70 02/25/23 10:05 BP 118/78 02/25/23 10:05 Pulse Ox 97 02/25/23 10:05 Oxygen Delivery Method Room Air 02/25/23 10:05 BMI result Body Mass Index 29.6 Tobacco/Smoking Status: Tobacco use Status Tobacco use date assessed 02/25/23 02/25/23 10:06 Patient Tobacco Use Status Former Tobacco user 02/25/23 10:06 Tobacco use type Cigarette 02/25/23 10:06 e-Cigarette/Vaping Use Never Used 02/25/23 10:06 PHQ-9: PHQ-9 Score PHQ-9: Total score 0 02/25/23 10:14 Depression Screening Interpretation: Negative Thrive Assessment: Date of Thrive Assessment Date Thrive assessed 02/25/23 02/25/23 10:06 Const General: cooperative, healthy appearing and no acute distress Orientation/consciousness: oriented to person, oriented to place and oriented to time HENMT Head: Yes normal to inspection, Yes normocephalic and Yes atraumatic Mouth: Normal oral and palatal mucosa present and tongue normal Throat: Yes posterior oropharynx normal and Yes uvula midline Eyes General: appearance normal, both eyes and all related structures Neck Neck: Yes normal visual inspection, Yes full ROM and Yes no lymphadenopathy Thyroid: Thyroid normal Carotids: normal carotid upstroke Chest Chest palpation & inspection: normal inspection of the chest Resp Effort & Inspection: normal respiratory effort and able to speak in complete sentences Auscultation: clear to auscultation bilaterally Cardio Jugular venous distension: no JVD Palpation: normal PMI Rate: regular rate Rhythm: regular rhythm Heart sounds: S1 normal heart sound present and S2 normal heart sound present GI Inspection: Yes normal to inspection Palpation (GI): Soft to palpation and No hepatosplenomegaly present Auscultation: normal bowel sounds General: Yes no CVA tenderness Back/Spine/Pelvis Back: no CVA tenderness Skin General skin exam: no rashes or lesions noted Neuro General: oriented to person, oriented to place and oriented to time Extrem General: Yes normal to inspection and Yes full ROM Assessment and Plan Assessment & Plan (1) Physical exam: Code(s): Z00.00 - Encounter for general adult medical examination without abnormal findings Plan: do labs; stable Orders: Orders Thyroid Stimulating Hormone Today E03.9 - Hypothyroidism, unspecified Complete Blood Count Auto Diff Today D64.9 - Anemia, unspecified Comprehensive Leon. Panel Fast Today N28.9 - Disorder of kidney and ureter, unspecified Lipid Panel Today E78.5 - Hyperlipidemia, unspecified XR lumbar spine 2-3V Today M54.9 - Dorsalgia, unspecified Coding Level of Care Code Est Pt Prev Care 40-64y(58583) Diagnoses Physical exam Z00.00 Additional Codes SUJEY-7 Assessment Billing - SUJEY-7 Assessment Tool: SUJEY-7 Assessment 61266 ([id number])
== END 2023-02-25 10:23 | disposition home or self-care (01) ==
PROVIDERS: Visit Provider Internal Medicine
DX: Z00.00 Encounter for general adult medical examination without abnormal findings (principal)
CPT/HCPCS: 99396

== ENCOUNTER 2023-02-28 07:34 | Outpatient (REF) | payer OTHER, SELFPAY ==
--- NOTE | ~2023-02-28 | XR_ITS ---
EXAMINATION: XR LUMBOSACRAL SPINE CLINICAL INFORMATION: Back pain. COMPARISON: None available. TECHNIQUE: Three views of the lumbosacral spine. FINDINGS: Slight rightward curvature of the thoracolumbar spine. Moderate degenerative changes with hypertrophic change in the bilateral sacroiliac joints. Degenerative changes in the imaged lower thoracic spine. Facet arthritis in the mid to lower lumbar spine. Moderate multilevel lumbar spondylosis. Lumbar disc space heights are preserved. XR/XR lumbar spine 2-3V IMPRESSION: 1. Moderate multilevel lumbar spondylosis. 2. Facet arthritis in the mid to lower lumbar spine.
== END 2023-02-28 07:35 | disposition home or self-care (01) ==
LOC: HO.LAB 07:34
PROVIDERS: PCP Internal Medicine; Visit Provider Internal Medicine
DX: E03.9 Hypothyroidism, unspecified (principal); M54.9 Dorsalgia, unspecified; D64.9 Anemia, unspecified; N28.9 Disorder of kidney and ureter, unspecified; E78.5 Hyperlipidemia, unspecified
CPT/HCPCS: 36415; 72100; 80053; 80061; 84443; 85025

== ENCOUNTER 2023-03-27 15:19 | Outpatient (AMB) | payer OTHER, SELFPAY ==
--- NOTE | 2023-03-27 15:25 | A.OFFVIS_ITS ---
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 She is doing well with no concerns. Attempting to eat a healthy diet, no regular calcium, no vitamin D supplements, no regular exercise with fatigue and hip pain. Currently sexually active. Admits to vaginal dryness or irritation. STI testing offered; she declines bloodwork. Last pap smear; 2022. Last mammogram; 2022. Colonoscopy is UTD. Denies any family history of breast or ovarian. FH rectal cancer. [facility] Medical History Abnormal Pap smear of cervix Hx of ectopic History of in vitro fertilization Hx of attention deficit disorder Surgical History History of breast lift Hx of tubal ligation Family History Mother Rectal cancer Thyroid disease History of fibromyalgia Father Pancreatic cancer Liver cancer Diabetes mellitus Paternal Grandfather Aneurysm Daughter History of open heart surgery Social History Housing: House Alcohol intake: never Patient Tobacco Use Status: Former Tobacco user Quit Date: >10 years ago Tobacco use type: Cigarette e-Cigarette/Vaping Use: Never Used Second Hand Smoke Exposure: No service: No Current occupational status: employed Sexual orientation: Straight/Heterosexual Gender identity: Female Cognitive needs: No Hearing needs: No Vision needs: No Female Reproductive History Menstrual Age of Menarche: 13 control method: permanent sterilization Total pregnancies: 7 Full term: 3 Number of Living Children: 3 Ab induced: 2 Ectopics: 2 Date of last pap smear: 03/22/22 (negative) History of abnormal pap smear: Yes Date of Mammogram: 06/12/22 Review of Systems Const All systems reviewed & are unremarkable except as noted in HPI and below Reports as per HPI Eyes Reports no additional complaints ENT Reports no additional complaints Card Reports no additional complaints Resp Reports no additional complaints GI Reports as per HPI and Reports no additional complaints Reports as per HPI Musc Reports no additional complaints Skin/Breast Reports as per HPI Neuro Reports no additional complaints Psych Reports no additional complaints Endo Reports no additional complaints Magdi/Lymph Reports no additional complaints Aller/Immun Reports no additional complaints Physical Exam Vital Signs: BMI result Body Mass Index 29.5 Const General: cooperative, healthy appearing, no acute distress, well developed and alert Orientation/consciousness: patient oriented x3 HEENT Head: Yes normal to inspection Eyes General: appearance normal, both eyes and all related structures Neck Neck: Yes normal visual inspection Thyroid: Thyroid normal Chest Chest palpation & inspection: normal inspection of the chest and other (no puckering, dimpling, peau de orange, retraction, discharge, masses) Breast/axilla inspection: normal inspection of the breasts Breast/axilla palpation: normal palpation of the breasts Resp Effort & Inspection: normal respiratory effort GI Inspection: Yes normal to inspection Palpation (GI): Soft to palpation Rectal Exam - Female: deferred General: Yes bladder normal to palpation External Female Exam: normal external appearance and normal appearance of the urethra Speculum Exam - Vagina: normal appearance of the vagina, normal palpation and normal vaginal discharge Speculum Exam - Cervix: normal appearance of the cervix and normal palpation Bimanual exam- vagina & uterus: normal bimanual exam, normal palpation, uterine size normal, bladder normal to palpation, normal palpation and non-tender Bimanual Exam- Adnexa, other: no masses Skin General skin exam: no rashes or lesions noted Rashes: no rashes Neuro General: patient oriented x3 Cognition (Neuro): normal cognition Extrem General: Yes normal to inspection Psych Attitude: cooperative Thought process: Normal thought process present Assessment & Plan Assessment & Plan (1) Encounter for well woman exam with routine gynecological exam: Code(s): Z01.419 - Encounter for gynecological examination (general) (routine) without abnormal findings Plan Discussed: Current recommendations for pap smears per ASCCP guidelines. Breast awareness, periodic self breast exams and yearly mammogram. Maintain a healthy lifestyle, well balanced diet including Calcium 1,200 mg, speak with her PCP re: D3 level and supplements. Contact the office with any postmenopausal bleeding. Patient verbalizes understanding and agrees to the plan of care. She was given opportunity to ask questions and all questions were answered to the best of my ability. RTO in 1 year for annual last sorter exam. This note is constructed using voice recognition software. While every effort has been made to ensure accuracy, electrician supervisor airplane errors may have been included. Orders: Orders CT NG by PCR Today Z20.2 - Contact with and (suspected) exposure to infections with a predominantly sexual mode of transmission Bacterial Vaginosis Panel Today Z20.2 - Contact with and (suspected) exposure to infections with a predominantly sexual mode of transmission Coding Level of Care Code Est Pt Prev Care 40-64y(29111) Diagnoses Encounter for well woman exam with routine gynecological exam Z01.419
[2023-03-27 15:26] VITALS: BMI 29.5
== END 2023-03-27 15:56 | disposition home or self-care (01) ==
LOC: HO.HWS 15:19
PROVIDERS: PCP Internal Medicine; Visit Provider Advanced Practice Midwife
DX: Z01.419 Encounter for gynecological examination (general) (routine) without abnormal findings (principal)
CPT/HCPCS: 99396

== ENCOUNTER 2023-03-27 15:19 | Outpatient (REF) | payer OTHER, SELFPAY ==
[2023-03-28 02:39] LABS: CT PCR NOT DETECTED (Not Detect.); NG PCR NOT DETECTED (Not Detect.)
[2023-03-28 14:00] LABS: BV Int Neg Control Negative (Negative); BV Int Pos Control Positive (Positive)
== END 2023-03-27 15:20 | disposition home or self-care (01) ==
LOC: HO.LNP 15:19
PROVIDERS: PCP Internal Medicine; Visit Provider Advanced Practice Midwife
DX: Z01.419 Encounter for gynecological examination (general) (routine) without abnormal findings (principal); N89.8 Other specified noninflammatory disorders of vagina; Z20.2 Contact with and (suspected) exposure to infections with a predominantly sexual mode of transmission
CPT/HCPCS: 0353U; 87480; 87510; 87660; 99396

== ENCOUNTER 2023-04-22 17:08 | Outpatient (RCR) | payer OTHER, SELFPAY ==
--- NOTE | 2023-04-23 14:03 | MHC.PT.EP ---
[facility] [place] Office [place] Office [place] Office [address] Aric Gonzalez [address] [phone] F: [phone] F: [phone] F: [phone] F: [phone] Physical Therapy Plan of Care Date of Evaluation: 04/22/23 Date of Surgery: Diagnosis: Low back pain Assessment: Thania is a pleasant 52 yo female presenting to skilled physical therapy evaluation and treatment with c/o low back pain. Pt reports gradual onset of B lateral low back pain L>R beginning ~2 years ago. Pt received lumbar MRI on 02/28/23 indicating moderate multilevel spondylosis. Pt reports worsening of s/s since onset, along with intermittent shooting down L LE to knee. Pt has the most functional difficulty with prolonged positioning, sleeping, and crouching positions. Upon evaluation, pt presents with decreased hip strength, significant tissue restrictions through B glutes/lumbar PS, and decreased L hip ROM. Pt demonstrates postural deficits contributing to discomfort and decreased hip/core stability, which is exacerbated throughout mobility. Thania would benefit from skilled PT services to provide postural re-education, increase hip/core stability, and improve functional mobility toward PLOF. PT is recommended to attend PT 2x/week for 4 weeks. Frequency and Duration: The patient will be seen 2x/week for 4 weeks Short Term Goals: Pt will demonstrate independence with initial HEP through teach-back method, indicating proper adherence to PT Pt will report no radicular pain inferior to B hips for 1 consecutive week, showing centralization of s/s Pt will be able to perform 20 consecutive seated PPTs with proper TA activation for increased core stability Senior Care Goals: Pt will achieve 5/5 B hip MMTs showing increased hip stability necessary for functional mobility Pt will achieve pain-free B hip ROM WFL, allowing for proper gait mechanics Pt will improve functional mobility as noted through statistically significant increase in modified oswestry outcome measure Treatment Plan: Modalities to reduce pain, spasms and effusion. Manual therapy to restore motion and function. Therapeutic exercise to improve strength and flexibility. Neuromuscular re-education for posture and balance. Therapeutic activities to return to functional activities of daily living. Electronically signed by: Crys Patruno, PT, DPT Please sign and return to therapist. Thank you for your referral.
--- NOTE | 2023-06-11 15:59 | MHC.PT.DC ---
[facility] [place] Office [place] Office [place] Office [address] Aric Gonzalez [address] [phone] F: [phone] F: [phone] F: [phone] F: [phone] Physical Therapy Discharge Report Diagnosis: Low back pain Date of Surgery: Date of Evaluation: 04/22/23 Date of Discharge: 06/11/23 Treatments to Date: 1 Cancellations to Date: 3 No Shows to Date: Discharge Status: Patient Elected to Stop Discharge Summary: Pt was evaluated for PT on 04/22/23. She cancelled all of her PT treatments. She is being D/C from skilled PT as she has not attended or called to reschedule in > 30 days. Pt current level of function unknown at this time Electronically signed by: Crys Zavala, PT, DPT Please sign and return to therapist. Thank you for your referral.
== END 2023-06-11 15:59 | disposition home or self-care (01) ==
LOC: HO.PT 17:08
PROVIDERS: PCP Internal Medicine; Visit Provider Internal Medicine
DX: M54.50 Low back pain, unspecified (principal)
CPT/HCPCS: 97110; 97161

== ENCOUNTER → 2023-06-16 15:45 | Outpatient (BNV) | payer OTHER, SELFPAY | PROVIDERS: PCP Internal Medicine; Visit Provider Radiology Diagnostic Radiology | DX: Z12.31 Encounter for screening mammogram for malignant neoplasm of breast (principal) | CPT/HCPCS: 77063; 77067 ==

== ENCOUNTER 2023-06-16 15:49 | Outpatient (REF) | payer OTHER, SELFPAY | END 2023-06-16 15:50 | disposition home or self-care (01) | LOC: HO.MAMMO 15:49 | PROVIDERS: PCP Internal Medicine; Visit Provider Internal Medicine | DX: Z12.31 Encounter for screening mammogram for malignant neoplasm of breast (principal) | CPT/HCPCS: 77063; 77067 ==

== ENCOUNTER 2024-02-27 10:06 | Outpatient (AMB) | payer OTHER, SELFPAY ==
--- NOTE | 2024-02-27 10:15 | MHC.PC.OV ---
Vital Signs 02/27/24 10:16 Height 5 ft 5 in Weight 167 lb 4 oz BMI 27.8 BP 128/78 Blood Pressure Location Lt brachial Position Sitting Pulse 73 Pulse Source Pulse Oximeter Pulse Oximetry (%) 100 Oxygen Delivery Method Room Air Intake Visit Reasons: pe Intake Note: Patient is here today for a physical. Prize Fighter Required: No Manager Financial Systems: Not Required per policy Accompanied by: Self / Same As Patient Allergies codeine [Codeine] Allergy (Mild, Verified 02/27/24 10:16) HIVES morphine [MORPHINE] Allergy (Unknown, Verified 02/27/24 10:16) RASH, HIVES Tobacco use date assessed: 02/27/24 Dental Screening Dental Screen Date: 02/25/23 Did you have a dental visit in the last 12 months?: Yes Did you have a dental problem in the last 6 months where you did not have access to dental care?: No Was dental information given to patient?: Patient has dentist HPI pe HPI Details has ADHD PFSH Medical History Abnormal Pap smear of cervix Hx of ectopic History of in vitro fertilization Hx of attention deficit disorder Surgical History History of breast lift Hx of tubal ligation Family History (Updated 02/27/24 @ 10:21 by WILFREDO Blankenship) Mother Rectal cancer Thyroid disease History of fibromyalgia Father Pancreatic cancer Liver cancer Diabetes mellitus Paternal Grandfather Aneurysm Daughter History of open heart surgery Other Mental health disorder Substance use disorder Social History Housing: House Alcohol intake: never Patient Tobacco Use Status: Former Tobacco user Tobacco use type: Cigarette e-Cigarette/Vaping Use: Never Used Second Hand Smoke Exposure: Yes service: No Current occupational status: employed Sexual orientation: Straight/Heterosexual Gender identity: Female Cognitive needs: No Hearing needs: No Vision needs: No Female Reproductive History Menstrual Age of Menarche: 13 Questionnaire PHQ-9 Over the last 2 weeks, how often have you been bothered by any of the following problems? 1. Little interest or pleasure in doing things: not at all 2. Feeling down, depressed, or hopeless: several days 3. Trouble falling or staying asleep, or sleeping too much: not at all 4. Feeling tired or having little energy: not at all 5. Poor appetite or overeating: not at all 6. Feeling bad about yourself - or that you are a failure or have let yourself or your family down: not at all 7. Trouble concentrating on things, such as reading the newspaper or watching television: not at all 8. Moving or speaking so slowly that other people could have noticed. Or the opposite - being so fidgety or restless that you have been moving around a lot more than usual: not at all 9. Thoughts that you would be better off or of hurting yourself in some way: not at all Total score: 1 Depression Screening Interpretation: Positive Depression Screening Done: Yes Source: Developed by Drs. Victoriano Ponce, Yvette Mccoy, Bob Bird and colleagues, with an educational yaritza from [employer]. Thrive Questionnaire Date Thrive assessed: 02/25/23 I am a: Patient What is your living situation today?: I have a steady place to live Within the past 12 months, did the food you bought not last and you didn't have the money to get more?: Never true Within the past 12 months, did you worry whether your food would run out before you got money to buy more?: Never true Do you have trouble paying for medicines?: No Do you have trouble getting transportation to medical appointments?: No Do you have trouble paying your heating and electricity bill?: No Do you have trouble taking care of your child, family member or friend?: No Do you have trouble with day-to-day activities such as bathing, preparing meals, shopping, managing finances, etc.?: No Are you currently unemployed and looking for a job?: No Are you interested in more education?: No Please select the resources that you would like help with: None Currently or been in a relationship where the following occur: No concerns reported THRIVE Score: 0 AUDIT C Alcohol Use Questionnaire (AUDIT-C) 1. How often do you have a drink containing alcohol?: Never Total Score: 0 SUJEY-7 AMB Questionnaire SUJEY-7 Date SUJEY - 7 assessed: 02/25/23 Feeling nervous, anxious, or on edge: 0 = Not at all Not being able to stop or control worryin = Not at all Worrying too much about different things: 0 = Not at all Trouble relaxin = Several days Being so restless that it is hard to sit still: 0 = Not at all Becoming easily annoyed or irritable: 0 = Not at all Feeling afraid as if something awful might happen: 0 = Not at all Total SUJEY-7 score (0-4 normal; 5-9 mild; 10-14 moderate; 15-21 severe): 1 Source: Developed by Drs. Victoriano Ponce, Yvette Mccoy, Bob Bird and colleagues, with an educational yaritza from [employer]. Review of Systems Const Denies chills, Denies fatigue, Denies headache(s) and Denies weight loss Eyes Denies change in vision, Denies diplopia and Denies eye pain ENT Denies vertigo, Denies dizziness, Denies headache(s) and Denies nasal discharge Card Denies chest pain, Denies rapid heart rate and Denies dyspnea on exertion Resp Denies chest congestion, Denies cough, Denies pain with cough and Denies dyspnea on exertion GI Denies abdominal pain, Denies hematochezia and Denies change in bowel habits Musc Denies myalgias, Denies arthralgias and Denies joint swelling Skin/Breast Denies lesions and Denies unusual bruising Neuro Denies vertigo, Denies dizziness, Denies headache(s) and Denies focal weakness Endo Denies fatigue Physical exam (Primary Care) Vital Signs: Last Vital Signs Pulse 73 02/27/24 10:16 BP 128/78 02/27/24 10:16 Pulse Ox 100 02/27/24 10:16 Oxygen Delivery Method Room Air 02/27/24 10:16 BMI result Body Mass Index 27.8 Tobacco/Smoking Status: Tobacco use Status Tobacco use date assessed 02/27/24 02/27/24 10:22 Patient Tobacco Use Status Former Tobacco user 02/27/24 10:22 Tobacco use type Cigarette 02/27/24 10:22 e-Cigarette/Vaping Use Never Used 02/27/24 10:22 PHQ-9: PHQ-9 Score PHQ-9: Total score 1 02/27/24 10:22 Depression Screening Interpretation: Positive Thrive Assessment: Date of Thrive Assessment Date Thrive assessed 02/25/23 02/27/24 10:22 Currently or been in a relationship where the following occur: No concerns reported Const General: cooperative, healthy appearing and no acute distress Orientation/consciousness: oriented to person, oriented to place and oriented to time HENFL Head: Yes normal to inspection, Yes normocephalic and Yes atraumatic Mouth: Normal oral and palatal mucosa present and tongue normal Throat: Yes posterior oropharynx normal and Yes uvula midline Eyes General: appearance normal, both eyes and all related structures Neck Neck: Yes normal visual inspection, Yes full ROM and Yes no lymphadenopathy Thyroid: Thyroid normal Carotids: normal carotid upstroke Chest Chest palpation & inspection: normal inspection of the chest Resp Effort & Inspection: normal respiratory effort and able to speak in complete sentences Auscultation: clear to auscultation bilaterally Cardio Jugular venous distension: no JVD Palpation: normal PMI Rate: regular rate Rhythm: regular rhythm Heart sounds: S1 normal heart sound present and S2 normal heart sound present GI Inspection: Yes normal to inspection Palpation (GI): Soft to palpation and No hepatosplenomegaly present Auscultation: normal bowel sounds General: Yes no CVA tenderness Back/Spine/Pelvis Back: no CVA tenderness Skin General skin exam: no rashes or lesions noted Neuro General: oriented to person, oriented to place and oriented to time Extrem General: Yes normal to inspection and Yes full ROM Coding Level of Care Code Est Pt Prev Care 40-64y(25146) Diagnoses Physical exam Z00.00 ADHD F90.9 Assessment & Plan Assessment & Plan (1) Physical exam: Code(s): Z00.00 - Encounter for general adult medical examination without abnormal findings Category: Medical Plan: do labs (2) ADHD: Code(s): F90.9 - Attention-deficit hyperactivity disorder, unspecified type Category: Medical Plan: rx sebt Orders: Orders Vitamin D 25-OH Total Today Z13.9 - Encounter for screening, unspecified Lipid Panel Today Z13.220 - Encounter for screening for lipoid disorders Thyroid Stimulating Hormone Today Z13.29 - Encounter for screening for other suspected endocrine disorder Complete Blood Count Auto Diff Today Z13.0 - Encounter for screening for diseases of the blood and blood-forming organs and certain disorders involving the immune mechanism Comprehensive [place]. Panel Fast Today Z13.9 - Encounter for screening, unspecified Medications: New amoxicillin-pot clavulanate 500-125 mg (Augmentin) 1 tab PO BID 10 tabs 0RF methylphenidate HCl (Ritalin) Partial Fill upon patient request. 10 mg PO DAILY 30 tabs 0RF Refilled valacyclovir (Valtrex) 1,000 mg PO BID 30 tabs 0RF
[2024-02-27 10:16] VITALS: BP 128/78; PULSE 73; O2SAT 100; BMI 27.8
--- OUTSIDE RECORDS SUMMARY | 2024-02-27 11:22 | XMS_ITS | Patient Health Record ---
Author Organization [facility] Address [address] [place] [address] Care Team Providers Care Engineering Secretary Name Role Phone Nasim Gonzales MD Primary Care Provider Mandeep Gan Jr Unavailable ALLERGIES Allergen (clinical drug ingredient) Drug/Non Drug Allergy documented on EMR Reaction Allergy Type Onset Date Status morphine Morphine Unknown Drug Allergy Active codeine Codeine Unknown Drug Allergy Active REASON FOR REFERRAL No Information MEDICATIONS Medication SIG (Take, Route, Frequency, Duration) Notes Start Date End Date Status MiraLax (colon prep) 17 GM/SCOOP mixed with Gatorade or Crystal Light Orally begin at 5:00 p.m. the day before the procedure for 1 day 08/23/2021 Active IMMUNIZATIONS Vaccine Route Administration Date Status Comme nts Influenza Unknown 08/23/2021 Refused SOCIAL HISTORY Tobacco Use: Social History Observation Description Date Details (start date - stop date) Former Smoker NA - NA Sex Assigned At : Social History Observation Description Sex Assigned At Unknown Tobacco Use/Smoking Question Answer Notes Patient is a former smoker How long has it been since you last smoked? > 10 years Alcohol Screen Question Answer Notes Did you have a drink containing alcohol in the p ast year? No Points 0 Interpretation Negative PROBLEMS Problem Type ICD Code Onset Dates Problem Status W/U Status Risk SNOMED Code Notes Problem Colon cancer screening (Z12.11) Active confirmed 690154535 Problem Hemorrhoids, unspecified hemorrhoid type (K64.9) Active confirmed [id number] PLAN OF TREATMENT Future Test Test Name Order Date COLONOSCOPY 08/23/2021 Insurance Providers Payer Name Payer Address Payer Phone Subscriber Number Group Number Insured Name Patient Relationship to Insured Coverage Start Date Coverage End Date [facility] [address] [address] [place], [place] [id number] [phone] [id number] GRACE JONES Self - patient is the insured MEDICAL (GENERAL) HISTORY Medical History History ICD Code Denies [place],DM,CVA,Lung disease,renal dise ase Surgical History Surgery Date(Month/Year) falopion tube removal
== END 2024-02-27 10:35 | disposition home or self-care (01) ==
PROVIDERS: PCP Internal Medicine; Visit Provider Internal Medicine
DX: Z00.00 Encounter for general adult medical examination without abnormal findings (principal); F90.9 Attention-deficit hyperactivity disorder, unspecified type

== ENCOUNTER → 2024-02-27 10:06 | Outpatient (BNVA) | payer OTHER, SELFPAY | PROVIDERS: PCP Internal Medicine; Visit Provider Internal Medicine | DX: Z00.00 Encounter for general adult medical examination without abnormal findings (principal) | CPT/HCPCS: 99396 ==

== ENCOUNTER 2024-05-20 07:15 | Outpatient (REF) | payer OTHER, SELFPAY ==
[2024-05-20 07:28] LABS: MANUAL DIFF FLAG NO
[2024-05-20 07:55] LABS: Basophils Absolute Auto 0.1 X10*3/uL (0.0-0.2); Eosinophils Absolute Auto 0.2 X10*3/uL (0.0-0.4); Eosinophils Percent Auto 2.6 % (0-4); Hematocrit 38.5 % (37.0-47.0); Hemoglobin 12.5 g/dl (12.0-16.0); Imm Gran Abs Auto 0.01 X10*3/uL (0.00-0.03); Imm Gran Pct Auto 0.1 % (0.0-0.4); Lymphocytes Absolute Auto 2.8 X10*3/uL (1.2-4.9); Lymphocytes Percent Auto 41.4 % (20-40); Mean Corpuscular HGB Conc 32.5 g/dl (31.0-35.0); Mean Corpuscular Volume 86.3 fL (80.0-98.0); Mean Platelet Volume 9.9 fL (9.4-12.3); Monocytes Absolute Auto 0.5 X10*3/uL (0.1-1.2); Monocytes Percent Auto 7.9 % (2-11); Neutrophils Absolute Auto 3.2 x10*3/uL (2.0-8.3); Platelet Count 272 X10*3/uL (160-400); Red Blood Count 4.46 X10*6/uL (4.20-5.50); Red Cell Distribution Width 12.5 % (11.0-16.0); White Blood Count 6.8 X10*3/uL (4.8-10.8)
[2024-05-20 08:16] LABS: Alanine Aminotransferase 21 U/L (0-31); Albumin Level 4.3 g/dL (3.5-5.0); Alkaline Phosphatase 86 U/L (39-117); Anion Gap 10 (12-20); Aspartate Amino Transferase 28 U/L (5-31); Bilirubin Total 0.9 mg/dL (0.0-1.0); Blood Urea Nitrogen 14 mg/dL (9-16); Calcium 9.4 mg/dL (8.4-10.2); Carbon Dioxide 27 mmol/L (22-29); Chloride 107 mmol/L (96-108); Cholesterol 214 mg/dL (<200); Estimated Glomerular Filt Rate > 60; Glucose Fasting 95 mg/dL (60-99); HDL Cholesterol 55 mg/dL (>40); LDL Cholesterol Calculated 140 mg/dL (<100); Potassium 4.3 mmol/L (3.3-5.1); Sodium 140 mmol/L (135-145); Total Protein 7.6 g/dL (6.5-8.0); Triglycerides 96 mg/dL (<150)
[2024-05-20 08:42] LABS: Vitamin D 25-OH Total 24.4 ng/mL (>30)
== END 2024-05-20 07:16 | disposition home or self-care (01) ==
LOC: HO.LAB 07:15
PROVIDERS: Visit Provider Internal Medicine
DX: Z13.0 Encounter for screening for diseases of the blood and blood-forming organs and certain disorders involving the immune mechanism (principal); Z13.220 Encounter for screening for lipoid disorders; Z13.29 Encounter for screening for other suspected endocrine disorder
CPT/HCPCS: 36415; 80053; 80061; 82306; 84443; 85025

== ENCOUNTER 2024-06-21 08:51 | Outpatient (REF) | payer OTHER, SELFPAY ==
[2024-06-21 10:00] LABS: TSH reflex Free T4 3.98 uIU/mL (0.32-4.0)
== END 2024-06-21 08:52 | disposition home or self-care (01) ==
LOC: HO.LAB 08:51
DX: R79.89 Other specified abnormal findings of blood chemistry (principal)
CPT/HCPCS: 36415; 84439; 84443

== ENCOUNTER 2024-07-14 13:44 | Outpatient (AMB) | payer OTHER, SELFPAY ==
[2024-07-14 13:52] VITALS: BP 122/62; PULSE 73; O2SAT 96; BMI 28.6
--- NOTE | 2024-07-14 13:52 | A.OFFPC_ITS ---
Vital Signs 07/14/24 13:52 Height 5 ft 5 in Weight 172 lb BMI 28.6 BP 122/62 Blood Pressure Location Lt brachial Position Sitting Pulse 73 Pulse Source Pulse Oximeter Pulse Oximetry (%) 96 Oxygen Delivery Method Room Air Intake Visit Reasons: JASON DR Gonzales Allergies codeine [Codeine] Allergy (Mild, Verified 07/14/24 13:53) HIVES morphine [MORPHINE] Allergy (Unknown, Verified 07/14/24 13:53) RASH, HIVES Medication List - Last Reconciled 07/14/24 by Priyank Barajas MD atorvastatin 20 mg PO DAILY cholecalciferol (vitamin D3) 25 mcg PO DAILY methylphenidate HCl (Ritalin) 10 mg PO DAILY valacyclovir 500 mg PO BID Tobacco use date assessed: 02/27/24 Dental Screening Dental Screen Date: 07/14/24 Did you have a dental visit in the last 12 months?: Yes Did you have a dental problem in the last 6 months where you did not have access to dental care?: No Was dental information given to patient?: Patient has dentist HPI JASON DR Gonzales HPI Details history of syncope 7 years work up negative PFSH Medical History (Updated 07/14/24 @ 14:18 by Priyank Barajas MD) Perimenopausal symptoms Enlarged uterus Abnormal TSH Screening for colon cancer Abnormal Pap smear of cervix Hx of ectopic History of in vitro fertilization Hx of attention deficit disorder Surgical History History of breast lift Hx of tubal ligation Family History (Updated 02/27/24 @ 10:21 by WILFREDO Blankenship) Mother Rectal cancer Thyroid disease History of fibromyalgia Father Pancreatic cancer Liver cancer Diabetes mellitus Paternal Grandfather Aneurysm Daughter History of open heart surgery Other Mental health disorder Substance use disorder Social History (Updated 07/14/24 @ 14:09 by Priyank Barajas MD) Housing: House Alcohol intake: never Patient Tobacco Use Status: Former Tobacco user Tobacco use type: Cigarette Years Smoked: stopped 1989. smoked 3/4 pack a day e-Cigarette/Vaping Use: Never Used Second Hand Smoke Exposure: Yes service: No Current occupational status: employed Sexual orientation: Straight/Heterosexual Gender identity: Female Cognitive needs: No Hearing needs: No Vision needs: No Female Reproductive History Menstrual Age of Menarche: 13 Questionnaire PHQ-9 Over the last 2 weeks, how often have you been bothered by any of the following problems? 1. Little interest or pleasure in doing things: not at all 2. Feeling down, depressed, or hopeless: not at all 3. Trouble falling or staying asleep, or sleeping too much: not at all 4. Feeling tired or having little energy: not at all 5. Poor appetite or overeating: not at all 6. Feeling bad about yourself - or that you are a failure or have let yourself or your family down: not at all 7. Trouble concentrating on things, such as reading the newspaper or watching television: not at all 8. Moving or speaking so slowly that other people could have noticed. Or the opposite - being so fidgety or restless that you have been moving around a lot more than usual: not at all 9. Thoughts that you would be better off or of hurting yourself in some way: not at all Total score: 0 Depression Screening Interpretation: Negative Depression Screening Done: Yes Source: Developed by Drs. Victoriano Ponce, Yvette Mccoy, Bob Bird and colleagues, with an educational yaritza from [employer]. Thrive Questionnaire Date Thrive assessed: 02/27/24 I am a: Patient What is your living situation today?: I have a steady place to live Within the past 12 months, did the food you bought not last and you didn't have the money to get more?: Never true Within the past 12 months, did you worry whether your food would run out before you got money to buy more?: Never true Do you have trouble paying for medicines?: No Do you have trouble getting transportation to medical appointments?: No Do you have trouble paying your heating and electricity bill?: No Do you have trouble taking care of your child, family member or friend?: No Do you have trouble with day-to-day activities such as bathing, preparing meals, shopping, managing finances, etc.?: No Are you currently unemployed and looking for a job?: No Are you interested in more education?: No Please select the resources that you would like help with: None Currently or been in a relationship where the following occur: No concerns reported THRIVE Score: 0 AUDIT C Alcohol Use Questionnaire (AUDIT-C) 1. How often do you have a drink containing alcohol?: Never Total Score: 0 SUJEY-7 AMB Questionnaire SUJEY-7 Date SUJEY - 7 assessed: 07/14/24 Feeling nervous, anxious, or on edge: 0 = Not at all Not being able to stop or control worryin = Not at all Worrying too much about different things: 0 = Not at all Trouble relaxin = Several days Being so restless that it is hard to sit still: 0 = Not at all Becoming easily annoyed or irritable: 0 = Not at all Feeling afraid as if something awful might happen: 0 = Not at all Total SUJEY-7 score (0-4 normal; 5-9 mild; 10-14 moderate; 15-21 severe): 1 Source: Developed by Drs. Victoriano Ponce, Yvette Mccoy, Bob Bird and colleagues, with an educational yaritza from [employer]. SUJEY-7 Assessment Billing SUJEY-7 Assessment Tool: SUJEY-7 Assessment 21146 Physical exam (Primary Care) Vital Signs: Oxygen Delivery Method Room Air 07/14/24 13:52 Tobacco/Smoking Status: Tobacco use Status Tobacco use date assessed 02/27/24 02/27/24 10:22 Patient Tobacco Use Status Former Tobacco user 02/27/24 10:22 Tobacco use type Cigarette 02/27/24 10:22 e-Cigarette/Vaping Use Never Used 02/27/24 10:22 Depression Screening Interpretation: Negative Thrive Assessment: Date of Thrive Assessment Date Thrive assessed 02/27/24 03/29/24 11:53 Currently or been in a relationship where the following occur: No concerns reported Const General: alert; No acute distress Eyes Conjunctivae: conjunctivae normal Resp Auscultation: clear to auscultation bilaterally Cardio Rate: regular rate Rhythm: regular rhythm GI Inspection: Yes normal to inspection Extrem General: Yes normal to inspection and No edema Coding Level of Care Code Est Pt Level 4 (43022) Complex EM visit Add On G2211 Diagnoses ADHD F90.9 Overweight (BMI 25.0-29.9) E66.3 Low vitamin D level R79.89 Tubular adenoma of colon D12.6 Breast cancer screening by mammogram Z12.31 Hypercholesterolemia E78.00 Additional Codes SUJEY-7 Assessment Billing - SUJEY-7 Assessment Tool: SUJEY-7 Assessment 37379 ([id number]) Assessment & Plan Assessment & Plan (1) ADHD: Code(s): F90.9 - Attention-deficit hyperactivity disorder, unspecified type Category: Medical Plan: Discussed with the patient on the need to get the notes from Psychiatry/or evaluation with our Psychiatry here for better understanding in treatment of ADHD. (2) Overweight (BMI 25.0-29.9): Code(s): E66.3 - Overweight Category: Medical Plan: Diet and exercise (3) Low vitamin D level: Code(s): R79.89 - Other specified abnormal findings of blood chemistry Category: Medical Plan: Continue with vitamin-D (4) Tubular adenoma of colon: Code(s): D12.6 - Benign neoplasm of colon, unspecified Category: Medical (5) Breast cancer screening by mammogram: Code(s): Z12.31 - Encounter for screening mammogram for malignant neoplasm of breast Category: Medical (6) Hypercholesterolemia: Code(s): E78.00 - Pure hypercholesterolemia, unspecified Category: Medical Plan History of Present Illness The patient is a 53-year-old female presenting with a focus on medication management and health maintenance. She reports a history of attention- deficit/hyperactivity disorder and is overweight. Currently, she is managing her hypercholesterolemia with lifestyle modifications and ongoing medication, noting a reduction but persisting elevation in cholesterol levels. Vitamin D deficiency is being addressed, now showing improvement in levels upon re- evaluation. Recent blood work revealed normal blood counts, electrolytes, renal function, and thyroid tests. The patient has concerns over potential hemorrhoids, citing a previous mention yet to be further assessed. She experiences increased thirst and a sense of imbalance with ambulation, seeking assessment and guidance regarding these symptoms. There is a reported need for regular screenings: mammogram and bone density are overdue, and colonoscopy was last conducted in 2021. The management of current health statuses, exercise plans, and nutrition remains central to the patient?s concerns. Health Maintenance - Colonoscopy was performed in 2021; mammogram and bone density assessments are due. - Discussion of diet modifications focusing on reducing fried and sugary foods, as well as red meats. - Exercise, such as fast walking, recommended to support weight management. - Continuation of vitamin D supplementation advised. - Shingles vaccine discussed as optional but recommended. - Recommendation for fasting laboratory test to further assess cholesterol management. Social History - Diet includes processed and fried foods, efforts being made to improve nutritional intake. - Exercise is limited, with recommendations towards increasing physical activity, such as fast walking. - Reports excellent hydration but notes increased thirst. Review of Systems - Constitutional: Denies fever. - Endocrine: Reports increased thirst. - Neurological: Reports imbalance while walking. - Genitourinary: Reports increased urination; previously noted blood in urine, but no current infection. - Gastrointestinal: Denies current issues, reports previous notation of possible hemorrhoids. Physical Exam General: Cooperative, overweight, healthy appearing, comfortable, no acute dis tress and well developed Orientation: Patient oriented x3 Limitations: No limitations Head: Normal to inspection Ears: Hearing grossly normal bilaterally Nose: Normal external nose present Face and sinus: Normal facial exam Eyes: Appearance normal, both eyes and all related structures Neck: Normal visual inspection and Yes full ROM Respiratory: Normal respiratory effort and able to speak in complete sentences. Clear to auscultation bilaterally Cardiovascular: Regular rate and rhythm. Normal S1 and S2 GI: Normal to inspection. Soft to palpation and nontender Skin: No rashes or lesions noted Neuro: Patient oriented x3 Extremities: Normal to inspection Results - Labs: April 2021: Normal blood count, electrolytes, renal function, sugar, and liver function. Cholesterol at 140 mg/dL and Vitamin D at 24 ng/mL. - May 2021 thyroid function test: Normal. Plan The approach to the patient's management involves coordinating ADHD care with psychiatry and continuing with pharmacotherapy for hypercholesterolemia augmented by lifestyle changes in diet and physical activity. Initiating a fasting blood profile will aid in assessing therapeutic efficacy. Persistent low vitamin D will be addressed with ongoing supplementation. Exploration and examination of hemorrhoidal symptoms are necessary to establish a definitive diagnosis. It is essential to monitor the patient's urinary symptoms and im plement a urine test contingent on the manifestation of symptoms. Scheduled mammogram and bone density tests are advocated to ensure comprehensive routine health screenings, with the optional integration of a shingles vaccine for further prophylaxis. Patient was informed and verbally consented to the use of an ambient scribe for clinic note documentation during this visit. Discussion Notes During the consultation, I conveyed the importance of sustaining a balanced diet and regular exercise as part of the strategy to manage overweight and hypercholesterolemia. I emphasized the necessity of continuing low-dose vitamin D supplementation due to improvement but persistent deficiency. A referral to psychiatry for ADHD was discussed to optimize management with informed collaboration. We dialogued on the completion of overdue screenings, underlining the mammogram and bone density studies as crucial preventive steps aligned with the patient's healthcare goals. I addressed concerns surrounding urinary symptoms, explaining the rationale for necessitating a urine test only when symptomatic, thereby avoiding unnecessary antibiotic use. The discussion concluded with recommendations for lifestyle adjustments, vaccination options, and follow-up plans including routine laboratory monitoring of cholesterol levels. Patient Instructions - Follow up with psychiatry regarding ADHD management. - Maintain a diet low in fried and sugary foods, increase vegetable and lean protein intake. - Engage in regular, low-impact physical activity such as brisk walking. - Continue vitamin D supplementation as advised. - Schedule a mammogram and bone density scan. - Take cholesterol medication daily and anticipate fasting blood work as part of monitoring. - When symptoms arise, report for urine testing; meanwhile, avoid antibiotics without proof of infection. - Discuss shingles vaccine with your pharmacy for potential administration. Orders: Orders Comprehensive Met. Panel Today E78.00 - Pure hypercholesterolemia, unspecified Free T4 (Free Thyroxine) Today E78.00 - Pure hypercholesterolemia, unspecified Thyroid Stimulating Hormone Today E78.00 - Pure hypercholesterolemia, unspecified Vitamin B12 and Folate Today E78.00 - Pure hypercholesterolemia, unspecified UA CC w/rflx Micro + Cult Today E78.00 - Pure hypercholesterolemia, unspecified, R30.0 - Dysuria Complete Blood Count Auto Diff Today E78.00 - Pure hypercholesterolemia, unspecified Lipid Panel Today E78.00 - Pure hypercholesterolemia, unspecified Vitamin D 25-OH Total Today E78.00 - Pure hypercholesterolemia, unspecified Referrals Psychiatry Outpatient Consultation Service F90.9 - Attention-deficit hyperactivity disorder, unspecified type Gastroenterology Referral D12.6 - Benign neoplasm of colon, unspecified Medications: New valacyclovir for 3 days 500 mg PO BID 6 tabs 3RF
--- OUTSIDE RECORDS SUMMARY | 2024-07-14 14:20 | XMS_ITS | Patient Health Record ---
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 the day before the procedure for 1 day 08/23/2021 Active Immunizations Vaccine Route Administration Date Status Comme nts Influenza Unknown 08/23/2021 Refused Social History Tobacco Use: Social History Observation Description Date Details (start date - stop date) Former Smoker NA - NA Tobacco Use/Smoking Question Answer Notes Patient is a former smoker How long has it been since you last smoked? > 10 years Alcohol Screen Question Answer Notes Did you have a drink containing alcohol in the p ast year? No Points 0 Interpretation Negative Section Notes: stopped tobacco 1999 Problems Problem Type SNOMED Code ICD Code Onset Dates Problem Status W/U Status Risk Notes Problem [id number] Colon cancer screening (Z12.11) Active confirmed Problem 29234757 Hemorrhoids, unspecified hemorrhoid type (K64.9) Active confirmed Plan Of Treatment Future Test Test Name Order Date COLONOSCOPY 08/23/2021 Insurance Providers Payer Name Payer Address Payer Phone Subscriber Number Group Number Insured Name Patient Relationship to Insured Coverage Start Date Coverage End Date [facility] [address] [place] [address] [id number] GRACE JONES Self - patient is the insured Medical (General) History Medical History History ICD Code Denies PA,DM,CVA,Lung disease,renal dise ase Surgical History Surgery Date(Month/Year) falopion tube removal
== END 2024-07-14 14:32 | disposition home or self-care (01) ==
LOC: HO.HMCH 13:48
PROVIDERS: Visit Provider Internal Medicine
DX: F90.9 Attention-deficit hyperactivity disorder, unspecified type (principal); E66.3 Overweight; R79.89 Other specified abnormal findings of blood chemistry; D12.6 Benign neoplasm of colon, unspecified; Z12.31 Encounter for screening mammogram for malignant neoplasm of breast; E78.00 Pure hypercholesterolemia, unspecified

== ENCOUNTER → 2024-07-14 13:44 | Outpatient (BNVA) | payer OTHER, SELFPAY | PROVIDERS: Visit Provider Internal Medicine | DX: E66.3 Overweight (principal); R79.89 Other specified abnormal findings of blood chemistry; D12.6 Benign neoplasm of colon, unspecified; E78.00 Pure hypercholesterolemia, unspecified; F90.9 Attention-deficit hyperactivity disorder, unspecified type; E55.9 Vitamin D deficiency, unspecified; R30.0 Dysuria; Z68.28 Body mass index [BMI] 28.0-28.9, adult | CPT/HCPCS: 96127; 99212 ==

== ENCOUNTER → 2024-07-26 14:30 | Outpatient (BNV) | payer OTHER, SELFPAY | PROVIDERS: Visit Provider Internal Medicine | DX: Z12.31 Encounter for screening mammogram for malignant neoplasm of breast (principal) | CPT/HCPCS: 77063; 77067 ==

== ENCOUNTER 2024-07-26 14:32 | Outpatient (REF) | payer OTHER, SELFPAY ==
--- OUTSIDE RECORDS SUMMARY | 2024-07-26 15:48 | XMS_ITS | Patient Health Record ---
Author Organization [facility] Address [address] [place] [address] Care Team Providers Care Apprentice Name Role Phone Anai Sanchez Primary Care Provider Corinne Zuniga Jr, Mandeep Vega Allergies Allergen (clinical drug ingredient) Drug/Non Drug [...] Problem Status W/U Status Risk Notes Problem [id number] Colon cancer screening (Z12.11) Active confirmed Problem [id number] Hemorrhoids, unspecified hemorrhoid type (K64.9) Active confirmed Plan Of Treatment Future Test Test Name Order Date COLONOSCOPY 08/23/2021 Next Appt Details Provider Name:Mandeep frances Jr, 01/26/2025 09:20:00 AM, [address], [address], [place], [address], Insurance Providers Payer Name Payer Address Payer Phone Subscriber Number Group Number Insured Name Patient Relationship to Insured Coverage Start Date Coverage End Date [facility] [address] [place] [address] [id number] GRACE JONES Self - patient is the insured Medical (General) History Medical History History ICD Code Denies DE,DM,CVA,Lung disease,renal dise ase Surgical History Surgery Date(Month/Year) falopion tube removal
== END 2024-07-26 14:33 | disposition home or self-care (01) ==
LOC: HO.MAMMO 14:32
DX: Z12.31 Encounter for screening mammogram for malignant neoplasm of breast (principal)
CPT/HCPCS: 77063; 77067

== ENCOUNTER 2024-10-07 10:40 | Outpatient (AMB) | payer OTHER, SELFPAY ==
--- NOTE | 2024-10-07 11:24 | AM.OFFWIN_ITS ---
Intake Vital Signs 10/07/24 11:25 Height 5 ft 5 in Weight 170 lb BMI 28.3 BP 122/70 Blood Pressure Location Rt brachial Position Sitting Pulse 80 Pulse Source Pulse Oximeter Temp 98.0 F Temp Source Oral Pulse Oximetry (%) 98 Oxygen Delivery Method Room Air Intake Visit Reasons: EP bad neck pain, head pain Intake Note: presents with right sided neck, head,ear, jaw pain, headache, gait off, ear pain with swallowing for 5 days. [facility] yesterday- rx'd valium Patient Tobacco Use Status: Former Tobacco user Allergies codeine (Codeine) Allergy (Mild, Verified 10/07/24 11:30) HIVES morphine (MORPHINE) Allergy (Unknown, Verified 10/07/24 11:30) RASH, HIVES Do you need a note to return to daycare/school/sports/work: Yes HPI HPI Comments History of Present Illness Details History of Present Illness - The patient is a 54-year-old female pr esenting with neck pain and headache. - The neck pain began on Friday and odell s progressively worsened, radiating to the ear, jaw, and face, with an associated headache. - She was seen in Urgent Care in [place] yesterday for the same pain. - Temporary relief was achieved with Mot rin, Tylenol, Valium, and a patch, but the pain persists, affecting sleep and balance. - No history of trauma or arthritis, and the patient sleeps on her stomach, which may exacerbate the condition. - She denies trauma or fall. She denies neck stiffness. - She has no radiation of the pain into the shoulders. - She denies numbness or tingling. Physical Exam General: Cooperative, healthy appearing, comfortable, no acute distress and well developed Orientation: Patient oriented x3 Limitations: Limited range of motion in the neck Neck: No midline spinous tenderness noted. No step offs noted. Decrease flexion and extension due to pain. TTP of the right occipital region, lateral cervical muscles, and SCM. Respiratory: Normal respiratory effort and able to speak in complete sentences. Clear to auscultation bilaterally Cardiovascular: Regular rate and rhythm. Normal S1 and S2 GI: Normal to inspection. Soft to palpation and nontender Skin: No rashes or lesions noted Neuro: Patient oriented x3, sensation is intact. Extremities: Normal to inspection, FROM of the UE bilaterally. Strength is 5/5 on the UE. Patient was informed and verbally consented to the use of an ambient scribe for clinic note documentation during this visit. [facility] Medical History (Updated 07/14/24 @ 14:18 by Priyank Barajas MD) Perimenopausal symptoms Enlarged uterus Abnormal TSH Screening for colon cancer Abnormal Pap smear of cervix Hx of ectopic History of in vitro fertilization Hx of attention deficit disorder Surgical History History of breast lift Hx of tubal ligation Family History (Updated 02/27/24 @ 10:21 by WILFREDO Blankenship) Mother Rectal cancer Thyroid disease History of fibromyalgia Father Pancreatic cancer Liver cancer Diabetes mellitus Paternal Grandfather Aneurysm Daughter History of open heart surgery Other Mental health disorder Substance use disorder Social History (Updated 07/14/24 @ 14:09 by Priyank Barajas MD) Housing: House Alcohol intake: never Patient Tobacco Use Status: Former Tobacco user Tobacco use type: Cigarette Years Smoked: stopped 1989. smoked 3/4 pack a day e-Cigarette/Vaping Use: Never Used Second Hand Smoke Exposure: Yes service: No Current occupational status: employed Sexual orientation: Straight/Heterosexual Gender identity: Female Cognitive needs: No Hearing needs: No Vision needs: No Female Reproductive History Menstrual Age of Menarche: 13 Review of Systems Const All systems reviewed & are unremarkable except as noted in HPI and below Physical Exam Vital Signs: Last Vital Signs Temp 98.0 F 10/07/24 11:25 Pulse 80 10/07/24 11:25 BP 122/70 10/07/24 11:25 Pulse Ox 98 10/07/24 11:25 Oxygen Delivery Method Room Air 10/07/24 11:25 BMI result Body Mass Index 28.3 Assessment & Plan Assessment & Plan (1) Neck pain: Code(s): M54.2 - Cervicalgia Plan Most likely torticollis vs strain vs arthritis Plan - Prescribe Aleve 500 mg for pain management, to be taken every 12 hours. - Initiate a course of prednisone for five days to reduce inflammation and muscle spasm. - Discontinue Valium and consider an alternative muscle relaxant if needed. - Advise the patient to avoid sleeping on her stomach to prevent exacerbation of neck pain. - Heat to the area - activities as tolerated - follow up with PCP Medications: New prednisone 50 mg PO QAM 5 tabs 0RF naproxen 500 mg PO Q12H PRN 20 tabs 0RF pain 7 days cyclobenzaprine 10 mg (2 x 5 mg) PO Q8H PRN 21 tabs 0RF Muscle Spasm 7 days Coding Level of Care Code Est Pt Level 3 (69849) Diagnoses Neck pain M54.2
[2024-10-07 11:25] VITALS: BP 122/70; PULSE 80; TEMP 36.7; O2SAT 98; BMI 28.3
--- OUTSIDE RECORDS SUMMARY | 2024-10-07 11:47 | XMS_ITS | Clinical Summary ---
Author Organization [facility] Address [address] [facility] [address] [place] [phone] Phone Care Team Providers Care Chaser Helper Name Role Phone Anai Jefferson Primary Care Provide r Allergies No known active allergies Medications diazePAM (VALIUM) 5 MG tablet Take 0.5 tablets (2.5 mg total) by mouth every 8 (eight) hours as needed for other (free text field) (muscle spasm). 5 tablet 10/06/2024 Active Encounters Date Type Department Care Team Description 10/06/2024 11:22 AM EDT - 10/06/2024 2:31 PM EDT Emergency [facility] Emergency Dept [address] [place] [address] [phone] Doug Altman MD Discharge Disposition: Home or Self Care from Last 3 Months Social History Tobacco Use Types Packs/Day Years Used Date Smoking Tobacco: Never Assessed Education Answer Date Recorded Are you interested in more education? Not on yuliya e 10/06/2024 Are you concerned about learning? Not on file 10/06/2024 No 10/06/2024 No 10/06/2024 Digital Access Answer Date Recorded No 10/06/2024 No 10/06/2024 Reliable internet access at home? Not on file 10/06/2024 Device with a working camera? Not on file Intimate Partner Violence Answer Date R ecorded Are you denied basic needs s uch as food, clothing, or medical care? No 10/06/2024 In the past 12 months have y ou been in a relationship with a person who hurts, threatens, or tries to control you? No 10/06/2024 Are you denied basic needs s uch as food, clothing, or medical care? No 10/06/2024 In the past 12 months have y ou been in a relationship with a person who hurts, threatens, or tries to control you? No 10/06/2024 Comments Unknown Sex and Gender Information Value Date Recorded Sex Assigned at Female 08/26/2022 9:14 AM EDT Legal Sex Female 9:10 AM EDT Gender Identity Female 08/26/2022 9:14 AM EDT Sexual Orientation Straight 08/26/2022 9: 14 AM EDT Last Filed Vital Signs Vital Sign Reading Time Taken Comments Blood Pressure 102/69 10/06/2024 2:08 PM EDT Pulse 67 10/06/2024 2:08 PM EDT Temperature 35.7 C (96.2 F) 10/06/2024 2:08 PM EDT Respiratory Rate 18 10/06/2024 11:21 AM EDT Oxygen Saturation 100% 10/06/2024 2:08 PM EDT Inhaled Oxygen Concentration - - Weight - - Height - - Body Mass Index - - Plan of Treatment Health Maintenance Due Date Last Done Comments Adult Td,Tdap Booster 1970 LIPID PANEL 1970 DEPRESSION SCREENING 1982 SMOKING Hx and SMOKELESS TOB ACCO SCREENING 10/03/1983 HEPATITIS C SCREENING 1988 HIV ONE-TIME SCREENING (18-6 5 YEARS) 1988 PAP SMEAR 10/03/1991 MAMMOGRAM 2010 COLOGUARD 10/03/2015 COLONOSCOPY 10/03/2015 COLORECTAL CANCER SCREENING 10/03/2015 FIT TEST 10/03/2015 FOBT 10/03/2015 SIGMOIDOSCOPY 10/03/2015 VIRTUAL COLONOSCOPY 10/03/2015 PNEUMOCOCCAL VACCINES (50+ y ears) (1 of 1 - PCV) 2020 ZOSTER VACCINES (1 of 2) 2020 COVID-19 VACCINE ( - 2023-2 5 season) 2023 HEPATITIS A VACCINES Aged Out No long er eligible based on patient's age to complete this topic HIB VACCINES Aged Out No longer eligi ble based on patient's age to complete this topic MENINGOCOCCAL VACCINES (ACWY) Aged Out No longer eligible based on patient's age to complete this topic MENINGOCOCCAL VACCINES (B) Aged Out N o longer eligible based on patient's age to complete this topic Medical Devices Not on file Insurance ACO Member Subscriber Plan / Payer (Ef fective 2022-Present) Name:BrandtThania calvillo Relation to Subscriber:Self Name:BrandtThania calvillo Payer ID:[id number] Group ID:[id number] Type:Medicaid Address: [address] [employer] [facility] DIRECT ACO Member Subscriber Plan / Payer (Ef fective 2022-Present) Name:Thania Carlton Relation to Subscriber:Self Name:Thania Carlton Payer ID:[id number] Group ID:[id number] Type:Medicaid Address: [address] [employer] [facility] DIRECT ACO [facility] [place] [address] [place] [address] [place] [facility] [place] [address] [place] [address] ACO PLANS [facility] DIRECT [facility] ACO [facility] DIRECT Care Teams Chaser Helper Relationship Specialty Start Date End Date Anai Jefferson PA [address] [place] [address] [place] [address] PCP - General Physician Needle Loom Operator Helper 10/06/24 Additional Source Comments The information contained in this document represents components of the legal health record. It is not the complete legal health record.[facility]
== END 2024-10-07 12:06 | disposition home or self-care (01) ==
PROVIDERS: Visit Provider Physician Assistant Medical
DX: M54.2 Cervicalgia (principal)

== ENCOUNTER → 2024-10-07 10:40 | Outpatient (BNVA) | payer OTHER, SELFPAY | PROVIDERS: Visit Provider Physician Assistant Medical | DX: M54.2 Cervicalgia (principal); R51.9 Headache, unspecified | CPT/HCPCS: 99212 ==

== ENCOUNTER 2024-10-13 13:06 | Outpatient (AMB) | payer OTHER, SELFPAY ==
--- NOTE | 2024-10-13 13:08 | A.OFFVIS_ITS ---
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 Marklogic Developer concerns: Admits to vaginal dryness. Currently sexually active. STI testing offered; she declined. Attempting to eat a healthy diet with calcium and vitamin D and stays active with exercise. Last pap smear; 2022, negative. Last mammogram; 2024. Colonoscopy is UTD. Denies any family history of breast, ovarian or colon cancer. [facility] Medical History Perimenopausal symptoms Enlarged uterus Abnormal TSH Screening for colon cancer Abnormal Pap smear of cervix Hx of ectopic History of in vitro fertilization Hx of attention deficit disorder Surgical History History of breast lift Hx of tubal ligation Family History Mother Rectal cancer Thyroid disease History of fibromyalgia Father Pancreatic cancer Liver cancer Diabetes mellitus Paternal Grandfather Aneurysm Daughter History of open heart surgery Other Mental health disorder Substance use disorder Social History Housing: House Alcohol intake: never Patient Tobacco Use Status: Former Tobacco user Tobacco use type: Cigarette Years Smoked: stopped 1989. smoked 3/4 pack a day e-Cigarette/Vaping Use: Never Used Second Hand Smoke Exposure: Yes service: No Current occupational status: employed Sexual orientation: Straight/Heterosexual Gender identity: Female Cognitive needs: No Hearing needs: No Vision needs: No Female Reproductive History Menstrual Age of Menarche: 13 control method: permanent sterilization Permanent Sterilization: BTL Total pregnancies: 7 Full term: 3 Number of Living Children: 3 Ab induced: 2 Ectopics: 2 Date of last pap smear: 03/21/22 (neg pap and hpv) History of abnormal pap smear: Yes (hx cryo) Date of Mammogram: 07/26/24 (Birad 1) Review of Systems Const All systems reviewed & are unremarkable except as noted in HPI and below Reports as per HPI Eyes Reports no additional complaints ENT Reports no additional complaints Card Reports no additional complaints Resp Reports no additional complaints GI Reports as per HPI and Reports no additional complaints Reports as per HPI Musc Reports no additional complaints Skin/Breast Reports as per HPI Neuro Reports no additional complaints Psych Reports no additional complaints Endo Reports no additional complaints Magdi/Lymph Reports no additional complaints Aller/Immun Reports no additional complaints Physical Exam Vital Signs: Last Vital Signs BP 104/60 10/13/24 13:10 BMI result Body Mass Index 28.0 Const General: cooperative, healthy appearing, no acute distress, well developed and alert Orientation/consciousness: patient oriented x3 HEENT Head: Yes normal to inspection Eyes General: appearance normal, both eyes and all related structures Neck Neck: Yes normal visual inspection Thyroid: Thyroid normal Chest Other: post surgical scarring Chest palpation & inspection: normal inspection of the chest and other (no puckering, dimpling, peau de orange, retraction, discharge, masses) Breast/axilla inspection: normal inspection of the breasts Breast/axilla palpation: normal palpation of the breasts Resp Effort & Inspection: normal respiratory effort GI Inspection: Yes normal to inspection and Yes scar Palpation (GI): Soft to palpation Rectal Exam - Female: deferred General: Yes bladder normal to palpation External Female Exam: normal external appearance and normal appearance of the urethra Speculum Exam - Vagina: normal appearance of the vagina, normal palpation and normal vaginal discharge Speculum Exam - Cervix: normal appearance of the cervix and normal palpation Bimanual exam- vagina & uterus: normal bimanual exam, normal palpation, uterine size normal, bladder normal to palpation, normal palpation and non-tender Bimanual Exam- Adnexa, other: no masses Skin General skin exam: no rashes or lesions noted Rashes: no rashes Neuro General: patient oriented x3 Cognition (Neuro): normal cognition Extrem General: Yes normal to inspection Psych Attitude: cooperative Thought process: Normal thought process present Assessment & Plan Assessment & Plan (1) Encounter for well woman exam with routine gynecological exam: Code(s): Z01.419 - Encounter for gynecological examination (general) (routine) without abnormal findings Category: Medical Plan: Discussed: Current recommendations for pap smears per ASCCP guidelines. Breast awareness, periodic self breast exams and yearly mammogram. Maintain a healthy lifestyle, well balanced diet including Calcium 1,200 mg and Vitamin D 600 IU daily, and routine exercise. Contact the office with any postmenopausal bleeding. Patient verbalizes understanding and agrees to the plan of care. She was given opportunity to ask questions and all questions were answered to the best of my ability. RTO in 1 year for annual obstetrics gynecology physician exam. This note is constructed using voice recognition software. While every effort has been made to ensure accuracy, optical laboratory technician errors may have been included. (2) Vaginal dryness: Code(s): N89.8 - Other specified noninflammatory disorders of vagina Plan Counseled regarding menopausal changes and options for [id number] self- help remedies like Replens moisturizer, and/or topical estrogen. We will consider trial of Replens and return to the office for follow up if interested in starting estrogen. The patient expressed understanding and agreement with the plan of care. All of her questions and concerns were addressed to the best of my ability. Coding Level of Care Code Est Pt Prev Care 40-64y(55319) Diagnoses Encounter for well woman exam with routine gynecological exam Z01.419 Vaginal dryness N89.8
[2024-10-13 13:10] VITALS: BP 104/60; BMI 28.0
--- OUTSIDE RECORDS SUMMARY | 2024-10-13 14:00 | XMS_ITS | Patient Health Record ---
Author Organization [facility] Address [address] [place] [address] Care Team Providers Care Breakfast Cook Name Role Phone Anai Sanchez Primary Care [...] Problem Status W/U Status Risk Notes Problem [id number] Colon cancer screening (Z12.11) Active confirmed Problem [id number] Hemorrhoids, unspecified hemorrhoid type (K64.9) Active confirmed Plan Of Treatment Future Test Test Name Order Date COLONOSCOPY 08/23/2021 Next Appt Details Provider Name:Mandeep frances Jr, 01/26/2025 09:20:00 AM, [address], [address], [place], [phone], Insurance Providers Payer Name Payer Address Payer Phone Subscriber Number Group Number Insured Name Patient Relationship to Insured Coverage Start Date Coverage End Date [facility] [address] [place] [address] [id number] GRACE JONES Self - patient is the insured Medical (General) History Medical History History ICD Code Denies [place],DM,CVA,Lung disease,renal dise ase Surgical History Surgery Date(Month/Year) falopion tube removal
--- OUTSIDE RECORDS SUMMARY | 2024-10-13 14:01 | XMS_ITS | Clinical Summary ---
Author Organization [facility] Address [address] [facility] [address] [place] [phone] Phone Care Team Providers Care Bench Grinder Name Role Phone Anai Jefferson Primary Care Provide r Allergies No known active allergies Medications diazePAM (VALIUM) 5 MG tablet Take 0.5 tablets (2.5 mg total) by mouth every 8 (eight) hours as needed for other (free text field) (muscle spasm). 5 tablet 10/06/2024 Active Encounters Date Type Department Care Team Description 10/06/2024 11:22 AM EDT - 10/06/2024 2:31 PM EDT Emergency [facility] [place] [address] [place] [address] [phone] Doug Altman MD Discharge Disposition: Home or [...] calvillo Relation to Subscriber:Self Name:BrandtThania calvillo Payer ID:[id number] Group ID:[id number] Type:Medicaid Address: [address] [employer] [facility] DIRECT ACO Member Subscriber Plan / Payer (Ef fective 2022-Present) Name:Thania Carlton Relation to Subscriber:Self Name:Thania Carlton Payer ID:[id number] Group ID:[id number] Type:Medicaid Address: [address] [employer] [facility] DIRECT ACO [facility] [place] [address] [place] [address] [address] [facility] [address] [place] [address] ACO PLANS [facility] ACO [facility] DIRECT Care Teams Bench Grinder Relationship Specialty Start Date End Date Anai Jefferson PA [address] [place] [address] [place] [address] PCP - General Physician Devops Engineer 10/06/24 Additional Source Comments The information contained in this document represents components of the legal health record. It is not the complete legal health record.[facility]
== END 2024-10-15 13:54 | disposition home or self-care (01) ==
LOC: HO.HWS 13:06
PROVIDERS: PCP Internal Medicine; Visit Provider Advanced Practice Midwife
DX: Z01.419 Encounter for gynecological examination (general) (routine) without abnormal findings (principal); N89.8 Other specified noninflammatory disorders of vagina
CPT/HCPCS: 99396; 99459

== ENCOUNTER → 2024-10-13 13:06 | Outpatient (BNVA) | payer OTHER, SELFPAY | PROVIDERS: PCP Internal Medicine; Visit Provider Advanced Practice Midwife | DX: Z01.419 Encounter for gynecological examination (general) (routine) without abnormal findings (principal); N89.8 Other specified noninflammatory disorders of vagina | CPT/HCPCS: 99396 ==

== ENCOUNTER 2024-11-12 07:29 | Outpatient (REF) | payer OTHER, SELFPAY ==
--- OUTSIDE RECORDS SUMMARY | 2024-11-12 07:34 | XMS_ITS | Clinical Summary ---
Author Organization [facility] Address [address] [facility] [address] [place] [phone] Phone Care Team Providers Care Lamp Replacer Name Role Phone Anai Jefferson Primary Care Provide r Allergies No known active allergies Medications diazePAM (VALIUM) 5 MG tablet Take 0.5 tablets (2.5 mg total) by mouth every 8 (eight) hours as needed for other (free text field) (muscle spasm). 5 tablet 10/06/2024 Active Encounters Date Type Department Care Team Description 10/06/2024 11:22 AM EDT - 10/06/2024 2:31 PM EDT Emergency [facility] Emergency Dept [address] [place] [address] [phone] Doug Altman MD Discharge Disposition: Home or [...] 2020 ZOSTER VACCINES (1 of 2) 2020 INFLUENZA VACCINE (#1) 2024 COVID-19 VACCINE (1 - 2023-2 5 season) 2024 HEPATITIS A VACCINES Aged Out No long [...] Carlton Relation to Subscriber:Self Name:Thania Carlton Payer ID:[id number] Group ID:[id number] Type:Medicaid Address: [address] [employer] [facility] [place] [place] [address] [employer] [facility] [place] [place] [address] ACO Member Subscriber Plan / Payer (Ef fective 2022-) Name:Carin Carltonby Relation to Subscriber:Self Name:Carin Carltonby Payer ID:[id number] Group ID:[id number] Type:Medicaid Address: [address] [facility] ACO [facility] DIRECT ACO Member Subscriber Plan / Payer (Ef fective 2022-) Name:Thania Carlton Relation to Subscriber:Self Name:BrandtThania calvillo Payer ID:[id number] Group ID:[id number] Type:Medicaid Address: [address] [facility] [place] [address] [place] [address] ACO [facility] DIRECT Care Teams Lamp Replacer Relationship Specialty Start Date End Date Anai Jefferson PA [address] [place] [address] [place] [address] PCP - General Physician Mathematics Department Chair 10/06/24 Additional Source Comments The information contained in this document represents components of the legal health record. It is not the complete legal health record.[facility]
[2024-11-12 07:42] LABS: MANUAL DIFF FLAG NO
[2024-11-12 08:14] LABS: Hematocrit 38.0 % (37.0-47.0); Hemoglobin 12.2 g/dl (12.0-16.0); Imm Gran Abs Auto 0.01 X10*3/uL (0.00-0.03); Imm Gran Pct Auto 0.2 % (0.0-0.4); Lymphocytes Absolute Auto 2.5 X10*3/uL (1.2-4.9); Mean Corpuscular HGB Conc 32.1 g/dl (31.0-35.0); Mean Corpuscular Hemoglobin 28.2 pg (27.0-33.0); Mean Corpuscular Volume 87.8 fL (80.0-98.0); NRBC Abs Auto 0.000 X10*3/uL (0.0-0.012); NRBC Pct Auto 0.0 /100WBC (0.0-0.2); Platelet Count 270 X10*3/uL (160-400); Red Blood Count 4.33 X10*6/uL (4.20-5.50); White Blood Count 6.2 X10*3/uL (4.8-10.8)
[2024-11-12 08:34] LABS: Appearance Urine Clear; Glucose Urine UA Negative (Negative); PH 7.0 (5.0-9.0); Specific Gravity - Urine 1.015 (1.005-1.025); UMIC TRIGGER UACC YES
[2024-11-12 08:51] LABS: Cholesterol 174 mg/dL (<200); HDL Cholesterol 49 mg/dL (>40); Triglycerides 95 mg/dL (<150)
[2024-11-12 08:52] LABS: UACC Culture Trigger YES
[2024-11-12 08:52] LABS: Alanine Aminotransferase 14 U/L (0-31); Albumin Level 4.7 g/dL (3.5-5.0); Alkaline Phosphatase 91 U/L (39-117); Anion Gap 10 (12-20); Aspartate Amino Transferase 21 U/L (5-31); Blood Urea Nitrogen 11 mg/dL (9-16); Calcium 9.5 mg/dL (8.4-10.2); Carbon Dioxide 30 mmol/L (22-29); Chloride 105 mmol/L (96-108); Cholesterol 173 mg/dL (<200); Estimated Glomerular Filt Rate > 60; HDL Cholesterol 49 mg/dL (>40); Potassium 4.1 mmol/L (3.3-5.1); Sodium 141 mmol/L (135-145); Total Protein 7.5 g/dL (6.5-8.0); Triglycerides 94 mg/dL (<150)
[2024-11-12 09:01] LABS: Free T4 (Free Thyroxine) 1.00 ng/dL (0.71-1.85)
[2024-11-12 09:02] LABS: Thyroid Stimulating Hormone 6.06 uIU/mL (0.32-4.0)
[2024-11-12 09:17] LABS: Folate 12.5 ng/mL (> or = 4.0); Vitamin B12 330 pg/mL (200-900)
== END 2024-11-12 07:30 | disposition home or self-care (01) ==
LOC: HO.LAB 07:29
PROVIDERS: PCP Internal Medicine; Visit Provider Internal Medicine
DX: R30.0 Dysuria (principal); E78.00 Pure hypercholesterolemia, unspecified
CPT/HCPCS: 36415; 80053; 80061; 81001; 82306; 82607; 82746; 84439; 84443; 85025; 87086

== ENCOUNTER 2024-11-22 15:17 | Outpatient (AMB) | payer OTHER, SELFPAY ==
[2024-11-22 15:19] VITALS: BP 114/70; PULSE 72; O2SAT 98; BMI 28.0
--- NOTE | 2024-11-22 15:19 | A.OFFPC_ITS ---
Vital Signs 11/22/24 15:19 Height 5 ft 5 in Weight 168 lb BMI 28.0 BP 114/70 Blood Pressure Location Lt brachial Position Sitting Pulse 72 Pulse Source Pulse Oximeter Pulse Oximetry (%) 98 Oxygen Delivery Method Room Air Intake Visit Reasons: Annual Exam Allergies codeine (Codeine) Allergy (Mild, Verified 11/22/24 15:19) HIVES morphine (MORPHINE) Allergy (Unknown, Verified 11/22/24 15:19) RASH, HIVES Medication List - Last Reconciled 11/22/24 by Priyank Barajas MD atorvastatin 20 mg PO DAILY cholecalciferol (vitamin D3) 25 mcg PO DAILY Tobacco use date assessed: 02/27/24 Dental Screening Dental Screen Date: 07/14/24 HPI Annual Exam HPI Details syncope hx last 2019 states L side on walking- leaning PFSH Medical History Perimenopausal symptoms Enlarged uterus Abnormal TSH Screening for colon cancer Abnormal Pap smear of cervix Hx of ectopic History of in vitro fertilization Hx of attention deficit disorder Surgical History History of breast lift Hx of tubal ligation Family History Mother Rectal cancer Thyroid disease History of fibromyalgia Father Pancreatic cancer Liver cancer Diabetes mellitus Paternal Grandfather Aneurysm Daughter History of open heart surgery Other Mental health disorder Substance use disorder Social History Housing: House Alcohol intake: never Patient Tobacco Use Status: Former Tobacco user Tobacco use type: Cigarette Years Smoked: stopped 1989. smoked 3/4 pack a day e-Cigarette/Vaping Use: Never Used Second Hand Smoke Exposure: Yes service: No Current occupational status: employed Sexual orientation: Straight/Heterosexual Gender identity: Female Cognitive needs: No Hearing needs: No Vision needs: Yes Female Reproductive History Menstrual Age of Menarche: 13 Questionnaire PHQ-9 Over the last 2 weeks, how often have you been bothered by any of the following problems? 1. Little interest or pleasure in doing things: not at all 2. Feeling down, depressed, or hopeless: not at all 3. Trouble falling or staying asleep, or sleeping too much: not at all 4. Feeling tired or having little energy: not at all 5. Poor appetite or overeating: not at all 6. Feeling bad about yourself - or that you are a failure or have let yourself or your family down: not at all 7. Trouble concentrating on things, such as reading the newspaper or watching television: not at all 8. Moving or speaking so slowly that other people could have noticed. Or the opposite - being so fidgety or restless that you have been moving around a lot more than usual: not at all 9. Thoughts that you would be better off or of hurting yourself in some way: not at all Total score: 0 Depression Screening Interpretation: Negative Depression Screening Done: Yes Source: Developed by Drs. Victoriano Ponce, Yvette Mccoy, Bob Bird and colleagues, with an educational yaritza from [employer]. Thrive Questionnaire Date Thrive assessed: 02/27/24 I am a: Patient What is your living situation today?: I have a steady place to live Within the past 12 months, did the food you bought not last and you didn't have the money to get more?: Never true Within the past 12 months, did you worry whether your food would run out before you got money to buy more?: Never true Do you have trouble paying for medicines?: No Do you have trouble getting transportation to medical appointments?: No Do you have trouble paying your heating and electricity bill?: No Do you have trouble taking care of your child, family member or friend?: No Do you have trouble with day-to-day activities such as bathing, preparing meals, shopping, managing finances, etc.?: No Are you currently unemployed and looking for a job?: No Are you interested in more education?: No Please select the resources that you would like help with: None Currently or been in a relationship where the following occur: No concerns reported THRIVE Score: 0 SUJEY-7 AMB Questionnaire SUJEY-7 Date SUJEY - 7 assessed: 07/14/24 Source: Developed by Drs. Victoriano Ponce, Bob Blank and colleagues, with an educational yaritza from [employer]. Review of Systems Const Denies poor appetite and Denies weakness Eyes Denies no additional complaints ENT Reports Normal hearing present, Denies dizziness, Denies nasal congestion, Denies tinnitus and Denies sore throat Card Denies chest pain, Denies syncope, Denies rapid heart rate and Denies dyspnea Resp Denies cough and Denies dyspnea GI Denies change in stool character, Reports constipation, Denies diarrhea, Denies nausea and Denies vomiting Denies urinary frequency, Denies difficulty voiding and Denies dysuria Neuro Reports Normal hearing present, Denies confusion, Denies dizziness, Denies syncope and Denies weakness Psych Denies confusion Physical exam (Primary Care) Vital Signs: Last Vital Signs Pulse 72 11/22/24 15:19 BP 114/70 11/22/24 15:19 Pulse Ox 98 11/22/24 15:19 Oxygen Delivery Method Room Air 11/22/24 15:19 BMI result Body Mass Index 28.0 Tobacco/Smoking Status: Tobacco use Status Tobacco use date assessed 02/27/24 11/22/24 15:20 Patient Tobacco Use Status Former Tobacco user 11/22/24 15:20 Tobacco use type Cigarette 11/22/24 15:20 e-Cigarette/Vaping Use Never Used 11/22/24 15:20 PHQ-9: PHQ-9 Score PHQ-9: Total score 0 11/22/24 15:25 Depression Screening Interpretation: Negative Thrive Assessment: Date of Thrive Assessment Date Thrive assessed 02/27/24 11/22/24 15:20 Currently or been in a relationship where the following occur: No concerns reported Const General: No confusion Orientation/consciousness: No confusion HENMT Head: Yes normocephalic Ears: external ears normal and TM's normal bilaterally Face and sinus: Yes normal facial exam Mouth: moist mucous membranes Throat: Yes tonsils normal Eyes Conjunctivae: conjunctivae normal Pupils: Equal, round and reactive pupils present and Pupil accommodation reflex normal Direct Ophthalmoscopy: normal light reflex Neck Neck: No lymphadenopathy Thyroid: Thyroid normal Chest Chest palpation & inspection: normal inspection of the chest Resp Effort & Inspection: normal respiratory effort and no audible wheezes Auscultation: clear to auscultation bilaterally, no crackles, no wheezes and lung sounds not diminished Cardio Rate: regular rate Rhythm: regular rhythm Peripheral pulses: radial pulses present and dorsalis pedis present GI Palpation (GI): no masses Auscultation: normal bowel sounds and normoactive bowel sounds Rectal Exam - Female: deferred Skin General skin exam: no rashes or lesions noted Rashes: no rashes Neuro General: No confusion Cranial nerves: Yes Equal, round and reactive pupils present and Yes Normal hearing present Cognition (Neuro): normal cognition Gait exam (Neuro): Normal gait present Motor exam (neuro): 5/5 motor strength present throughout Deep tendon reflexes (DTR's): Right brachioradialis reflex intensity grade: 2+, Left brachioradialis reflex intensity grade: 2+, Right patellar reflex intensity grade: 2+ and Left patellar reflex intensity grade: 2+ Extrem General: No edema Coding Level of Care Code Est Pt Prev Care 40-64y(70122) Diagnoses Annual physical exam Z00.00 Overweight (BMI 25.0-29.9) E66.3 TSH elevation R79.89 Hypercholesterolemia E78.00 Thyroid enlargement E04.9 Assessment & Plan Assessment & Plan (1) Annual physical exam: Code(s): Z00.00 - Encounter for general adult medical examination without abnormal findings Category: Medical Plan: Patient is advised to eat healthy, keep well hydrated, keep active and have adequate sleep. (2) Overweight (BMI 25.0-29.9): Code(s): E66.3 - Overweight Category: Medical Plan: Diet and exercise (3) TSH elevation: Code(s): R79.89 - Other specified abnormal findings of blood chemistry Category: Medical Plan: Will continue to monitor (4) Hypercholesterolemia: Code(s): E78.00 - Pure hypercholesterolemia, unspecified Category: Medical Plan: Avoid fried foods, chicken skin, eggs, butter margarine, pastries and meat. Be it pork or beef they have a lot of cholesterol LDL goal of less than 130 and triglyceride of less than 150. (5) Thyroid enlargement: Code(s): E04.9 - Nontoxic goiter, unspecified Category: Medical Plan History of Present Illness The patient is a 54-year-old female presenting with a wellness check and management of chronic conditions. The patient has a history of Attention Deficit Hyperactivity Disorder (ADHD), which was mentioned during the visit. The patient has a history of tubular adenoma of the colon, with the last colonoscopy performed in April 2022. The patient has hypercholesterolemia, with the last blood work showing an LDL of 106 mg/dL. The patient experienced muscle spasms and was treated with diazepam in September 2024. The patient reports episodes of positional vertigo, with the last episode occurring approximately five years ago. The patient has a history of hypothyroidism, with TSH levels fluctuating over time, currently noted to be mildly elevated. Health Maintenance - Colonoscopy performed in April 2022, follow-up scheduled every three years - Mammogram scheduled for January 2025 - Tetanus shot last received in 2012, recommended every 10 years - Shingles vaccination completed Social History - Denies alcohol and tobacco use - No recreational drug use - Reports weight gain from 145 to 168 pounds Review of Systems - General: Denies fever, chills, or weight loss - Cardiovascular: Denies chest pain, palpitations, or syncope - Respiratory: Denies dyspnea or cough - Gastrointestinal: Denies nausea, vomiting, or diarrhea - Neurological: Reports episodes of vertigo, denies headaches or dizziness - Musculoskeletal: Reports muscle spasms Physical Exam General: Cooperative, healthy appearing, comfortable, no acute distress and well developed Orientation: Patient oriented x3 Limitations: No limitations Head: Normal to inspection Ears: Hearing grossly normal bilaterally, though a little bit more earwax in one ear Nose: Normal external nose present Face and sinus: Normal facial exam Eyes: Appearance normal, both eyes and all related structures Neck: Normal visual inspection and Yes full ROM, no pains in the neck Respiratory: Normal respiratory effort and able to speak in complete sentences. Clear to auscultation bilaterally Cardiovascular: Regular rate and rhythm. Normal S1 and S2 GI: Normal to inspection. Soft to palpation and nontender Skin: No rashes or lesions noted Neuro: Patient oriented x3, noted benign positional vertigo and tendency to walk sideways towards the left side Extremities: Normal to inspection Results - Labs: Normal blood count, normal electrolytes, normal renal function, normal liver function, LDL 106 mg/dL, mildly elevated TSH Plan Patient was informed and verbally consented to the use of an ambient scribe for clinic note documentation during this visit. 1. Attention Deficit Hyperactivity Disorder (Adhd) The patient continues to manage ADHD, with a plan to follow up on any necessary evaluations or treatments as needed. 2. Tubular Adenoma Of The Colon The patient had a colonoscopy in April 2022, with follow-up colonoscopies scheduled every three years. 3. Hypercholesterolemia The patient is managing hypercholesterolemia with atorvastatin, aiming for an LDL goal of less than 130 mg/dL. 4. Muscle Spasms The patient was treated with diazepam for muscle spasms experienced in September 2024. 5. Positional Vertigo The patient reports episodes of positional vertigo, with no recent episodes noted. 6. Hypothyroidism The patient has a history of hypothyroidism with fluctuating TSH levels, currently mildly elevated, and will continue to be monitored. Discussion Notes During the visit, we discussed the management of hypercholesterolemia with atorvastatin and maintaining an LDL goal of less than 130 mg/dL. We also reviewed the patient's history of hypothyroidism and the plan to monitor TSH levels. The importance of regular colonoscopies and mammograms was emphasized, with the next colonoscopy scheduled for April 2025. Patient Instructions - Continue taking atorvastatin as prescribed to manage cholesterol levels. - Schedule and attend regular follow-up appointments for thyroid monitoring. - Maintain a healthy diet and exercise regularly to support overall health. - Avoid using Q-tips to clean ears to prevent earwax impaction. - Follow up with scheduled colonoscopy and mammogram appointments. Orders: Orders US thyroid Today E04.9 - Nontoxic goiter, unspecified Thyroid Stimulating Hormone 6 Months R79.89 - Other specified abnormal findings of blood chemistry Free T4 (Free Thyroxine) 6 Months R79.89 - Other specified abnormal findings of blood chemistry
--- OUTSIDE RECORDS SUMMARY | 2024-11-22 17:20 | XMS_ITS | Patient Health Record ---
Author Organization [facility] Address [address] [place] [address] Care Team Providers Care Nurse Healthcare Manager Name Role Phone Anai Sanchez Primary Care [...] Problem Status W/U Status Risk Notes Problem [id number] Colon cancer screening (Z12.11) Active confirmed Problem [id number] Hemorrhoids, unspecified hemorrhoid type (K64.9) Active confirmed Plan Of Treatment Future Test Test Name Order Date COLONOSCOPY 08/23/2021 Next Appt Details Provider Name:Mandeep frances Jr, 01/26/2025 09:20:00 AM, [address], [address], [place], [address], Insurance Providers Payer Name Payer Address Payer Phone Subscriber Number Group Number Insured Name Patient Relationship to Insured Coverage Start Date Coverage End Date [facility] [address] [place] [address] [id number] GRACE JONES Self - patient is the insured Medical (General) History Medical History History ICD Code Denies [place],DM,CVA,Lung disease,renal dise ase Surgical History Surgery Date(Month/Year) falopion tube removal
--- OUTSIDE RECORDS SUMMARY | 2024-11-22 17:20 | XMS_ITS | Clinical Summary ---
Author Organization [facility] Address [address] [facility] [address] [place] [address] Phone Care Team Providers Care Tree Fruit And Nut Farming Supervisor Name Role Phone Anai Jefferson Primary Care Provide r Allergies No known active allergies Medications diazePAM (VALIUM) 5 MG tablet Take 0.5 tablets (2.5 mg total) by mouth every 8 (eight) hours as needed for other (free text field) (muscle spasm). 5 tablet 10/06/2024 Active Encounters Date Type Department Care Team Description 10/06/2024 11:22 AM EDT - 10/06/2024 2:31 PM EDT Emergency [facility] Emergency Dept [address] [place] [address] [phone] Doug Altman MD Discharge Disposition: Home or [...] Carlton Relation to Subscriber:Self Name:Thania Carlton Payer ID:[id number] Group ID:[id number] Type:Medicaid Address: [address] [facility] [facility] [employer] [place] [address] ACO [employer] [facility] [place] [address] [address] ACO Member Subscriber Plan / Payer (Ef fective 2022-) Name:Carin Carltonby Relation to Subscriber:Self Name:Carin Carltonby Payer ID:[id number] Group ID:[id number] Type:Medicaid Address: [address] [facility] ACO [employer] ACO Member Subscriber Plan / Payer (Ef fective 2022-) Name:Thania Carlton Relation to Subscriber:Self Name:BrandtThania calvillo Payer ID:[id number] Group ID:[id number] Type:Medicaid Address: [address] [employer] [place] [address] ACO [facility] DIRECT Care Teams Tree [employer] Nut Farming Supervisor Relationship Specialty Start Date End Date Anai Jefferson PA [address] [place] [address] [place] [address] PCP - General Physician Machine Cage Maker 10/06/24 Additional Source Comments The information contained in this document represents components of the legal health record. It is not the complete legal health record.[facility]
== END 2024-11-22 15:51 | disposition home or self-care (01) ==
PROVIDERS: PCP Internal Medicine; Visit Provider Internal Medicine
DX: Z00.00 Encounter for general adult medical examination without abnormal findings (principal); E66.3 Overweight; R79.89 Other specified abnormal findings of blood chemistry; E78.00 Pure hypercholesterolemia, unspecified; E04.9 Nontoxic goiter, unspecified

== ENCOUNTER → 2024-11-22 15:17 | Outpatient (BNVA) | payer OTHER, SELFPAY | PROVIDERS: PCP Internal Medicine; Visit Provider Internal Medicine | DX: Z00.00 Encounter for general adult medical examination without abnormal findings (principal); E66.3 Overweight; R79.89 Other specified abnormal findings of blood chemistry; E78.00 Pure hypercholesterolemia, unspecified; E04.9 Nontoxic goiter, unspecified; F90.9 Attention-deficit hyperactivity disorder, unspecified type; M62.838 Other muscle spasm; R42 Dizziness and giddiness; E03.9 Hypothyroidism, unspecified; Z68.28 Body mass index [BMI] 28.0-28.9, adult; Z86.0101 Personal history of adenomatous and serrated colon polyps | CPT/HCPCS: 99396 ==

== ENCOUNTER 2025-01-22 10:12 | Outpatient (REF) | payer OTHER, SELFPAY ==
--- OUTSIDE RECORDS SUMMARY | 2025-01-22 10:14 | XMS_ITS | Clinical Summary ---
Author Organization [facility] Address [address] [facility] [address] [place] [address] Phone Care Team Providers Care Chief Operator Name Role Phone Anai Jefferson Primary Care Provide r Allergies No known active allergies Medications diazePAM (VALIUM) 5 MG tablet Take 0.5 tablets (2.5 mg total) by mouth every 8 (eight) hours as needed for other (free text field) (muscle spasm). 5 tablet 10/06/2024 Active Social History Tobacco Use Types Packs/Day Years [...] 2020 INFLUENZA VACCINE (#1) 2024 COVID-19 VACCINE ( - 2024-2 6 season) 2024 RSV VACCINE (1 - 1-dose 75+ series) 2045 HEPATITIS A VACCINES Aged Out No long [...] topic Medical Devices Not on file Insurance [place] [address] ACO Member Subscriber Plan / Payer (Ef fective 2022-Present) Name:Thania Carlton Relation to Subscriber:Self Name:Thania Carlton Payer ID:[id number] Group ID:[id number] Type:Medicaid Address: [address] [employer] [place] [address] [address] ACO Member Subscriber Plan / Payer (Ef fective 2022-) Name:Thania Carlton Relation to Subscriber:Self Name:Thania Carlton Payer ID:[id number] Group ID:[id number] Type:Medicaid Address: [address] [employer] [place] [address] [address] [facility] [employer] [place] [place] [address] ACO [facility] [employer] ACO Member Subscriber Plan / Payer (Ef fective 2022-) Name:Brandt Thania Relation to Subscriber:Self Name:Carin Carltonby Payer ID:[id number] Group ID:[id number] Type:Medicaid Address: [address] [facility] [employer] [place] [address] ACO Member Subscriber Plan / Payer (Ef fective 2022-) Name:Thania Carlton Relation to Subscriber:Self Name:Brandt Thania Payer ID:[id number] Group ID:[id number] Type:Medicaid Address: [address] [facility] [employer] DIRECT Care Teams Chief Operator Relationship Specialty Start Date End Date Anai Jefferson PA [address] [place] [address] Dr Guerrier [address] [place] [id number] PCP - General Physician [place] Hand 10/06/24 Additional Source Comments The information contained in this document represents components of the legal health record. It is not the complete legal health record.[facility]
--- OUTSIDE RECORDS SUMMARY | 2025-01-22 10:15 | XMS_ITS | Patient Health Record ---
Author Organization [facility] Address [address] [place] [address] Care Team Providers Care Director Workers Compensation Name Role Phone Anai Sanchez Primary Care Provider Mandeep Mayer Jr Unavailable Allergies Allergen (clinical drug ingredient) Drug/Non Drug Allergy documented on EMR Reaction Allergy Type Onset Date Status Information temporarily unavailable Codeine Unknown Drug Allergy Active Information temporarily unavailable Morphine Unknown Drug Allergy Active Reason For Referral No Information Medications Medication SIG (Take, Route, Frequency, Duration) Notes Start Date End Date Status MiraLax (colon prep) 17 GM/SCOOP Powder mixed with Gatorade or Crystal Light Orally begin at 5:00 p.m. the day before the procedure; Duration: 1 day 08/23/2021 Active Immunizations Vaccine Route Administration Date Status Comme nts Influenza Unknown 08/23/2021 Refused Social History Tobacco Use: Social History Observation Description Date Details (start date - stop date) Former Smoker NA - NA Social History Drugs/Alcohol: Social Info Question Answer Notes Alcohol Screen Did you have a drink containing alcohol in the past year? No Points 0 Interpretation Negative Tobacco Use: Social Info Question Answer Notes Tobacco Use/Smoking Patient is a former smoker How long has it been since you last smoked? 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: stopped tobacco 1999 Problems Problem Type SNOMED Code ICD Code Onset Dates Problem Status W/U Status Risk Notes Problem Information temporarily unavailable Colon cancer screening (Z12.11) Active confirmed Problem Information temporarily unavailable Hemorrhoids, unspecified hemorrhoid type (K64.9) Active confirmed Plan Of Treatment Future Test Test Name Order Date COLONOSCOPY 08/23/2021 Next Appt Details Provider Name:Mandeep frances Jr, 01/26/2025 09:20:00 AM, [address] [place] [address], [address], [place], [address], Insurance Providers Payer Name Payer Address Payer Phone Subscriber Number Group Number Insured Name Patient Relationship to Insured Coverage Start Date Coverage End Date [facility] [address] [place] [address] [phone] [id number] GRACE JONES Self - patient is the insured Medical (General) History Medical History History ICD Code Denies [place],DM,CVA,Lung disease,renal dise ase Surgical History Surgery Date(Month/Year) falopion tube removal
[2025-01-22 11:51] LABS: Appearance Urine Cloudy; Glucose Urine UA Negative (Negative); PH 6.5 (5.0-9.0); Specific Gravity - Urine 1.015 (1.005-1.025); UMIC TRIGGER UACC YES
[2025-01-22 11:54] LABS: UACC Culture Trigger YES
== END 2025-01-22 10:13 | disposition home or self-care (01) ==
LOC: HO.LAB 10:12
PROVIDERS: PCP Internal Medicine; Visit Provider Internal Medicine
DX: R30.0 Dysuria (principal); E78.00 Pure hypercholesterolemia, unspecified
CPT/HCPCS: 81001; 87086; 87088; 87186